=== PATIENT | female | born 1950 | race Caucasian/White ===

== ENCOUNTER 2017-05-08 19:25 | Emergency (ER) | payer MEDICARE, OTHER, SELFPAY ==
[2017-05-08 19:25] VITALS: BP 192/99; PULSE 102; RESP 16; TEMP 37.2; O2SAT 96; BMI 32.6
[2017-05-08 19:40] VITALS: BP 198/102; PULSE 104; RESP 18; O2SAT 97
--- NOTE | 2017-05-08 19:55 | EKG12_ITS ---
Test Reason : CHEST TIGHTNESS Blood Pressure : / mmHG Vent. Rate : 095 BPM Atrial Rate : 095 BPM P-R Int : 158 ms QRS Dur : 080 ms QT Int : 382 ms P-R-T Axes : 013 050 011 degrees QTc Int : 480 ms Normal sinus rhythm Normal ECG Confirmed by SYBIL CURRIE, ANTHONY ([id number]), brands editor FREDERICK QUINTERO ([id number]) on 05/10/2017 3:00:02 PM Referred By: MAYUR Confirmed By:ANTHONY DEVINE MD
--- NOTE | 2017-05-08 19:55 | RAD_ITS ---
STUDY: X-RAY CHEST REASON FOR EXAM: Female, 67 years old. High blood pressure TECHNIQUE: Single AP portable view of the chest. COMPARISON: None. FINDINGS: EKG lines overlying the chest. The lungs are clear and expanded. There is no demonstrated pleural abnormality. Normal size heart. Normal mediastinum and ruth. Normal visualized pulmonary arteries. Normal visualized aortic arch and descending thoracic aorta. Normal visualized thoracic spine. Normal visualized ribs, clavicles, and shoulders. There is no demonstrated abnormality of the visualized soft tissue structures of the upper abdomen. RAD/Chest 1 View (Portable) IMPRESSION: No acute cardiopulmonary disease. Electronically Signed: Sheldon Pierson DO at 20:31 EDT , Service support ,
--- NOTE | 2017-05-08 19:58 | NURSING ---
NO OLD EKG
[2017-05-08 20:19] LABS: Hematocrit 45.2 % (37-47); Mean Corp Hgb Conc 33.2 g/gl (32-36); Mean Corpuscular Hgb 30.2 pg (27.0-32.0); Mean Corpuscular Volume 90.9 fL (81-99); Platelet Count 326 K/mm3 (150-450); RBC Distribution Width CV 12.2 % (11.6-14.6); RBC Distribution Width SD 40.1 fl (35.1-43.9); Red Blood Count 4.97 M/mm3 (4.2-5.4); White Blood Count 7.2 K/mm3 (4.4-11.0)
[2017-05-08 20:20] LABS: Absolute Lymphocyte Count 2.25 X10^3/ul (0.83-4.51); Absolute Neutrophil Count 4.2 X10^3/uL (2.0-7.7); Basophil# 0.01 X10^3/uL; Basophil% 0.1 % (0-1); Eosinophils% 1.4 % (0-5); Lymphocyte # 2.25 X10^3/ul (4.0); Lymphocyte % 31.3 % (19-41); Monocyte# 0.59 X10^3/uL; Monocyte% 8.2 % (0-10); Neutrophil % 58.6 % (47-70)
[2017-05-08] MEDS: hydrALAZINE 20 MG/ML Vial 10 MG IV (20:26)
[2017-05-08 20:30] LABS: POSITIVE COUNT NO; POSITIVE DIFFERENTIAL NO; POSITIVE MORPHOLOGY NO
[2017-05-08] MEDS: Metoprolol Tartrate 5 MG/5 ML Vial IV (20:36)
[2017-05-08 20:40] VITALS: BP 174/97; PULSE 94; RESP 20; O2SAT 98
[2017-05-08 20:42] VITALS: BP 156/93; PULSE 85; RESP 20; O2SAT 95
[2017-05-08 20:51] LABS: Anion Gap 9 (5-15); BUN 12 mg/dL (7-18); BUN/Creat Ratio 16.3 RATIO (10-20); Calcium,Total 8.6 mg/dL (8.5-10.1); Chloride 106 mmol/L (98-107); Creatinine, Serum 0.74 mg/dL (0.55-1.02); EST Glomerular Filtration Rate 84 mL/min (>60); Est Glom Filt Rate - Afr Amer 101 mL/min (>60); Estimated Creatinine Clearance 55.82 ml/min; Glucose 125 mg/dL (74-106); Potassium 3.9 mmol/L (3.5-5.1); Sodium Level 141 mmol/L (136-145)
--- NOTE | 2017-05-08 21:02 | ED.VISSUMM ---
- ER Visit Summary Date of Service: 05/08/17 Chief Complaint: Hypertension History of Present Illness: The patient is a 67 F [place] with elevated blood pressure. Patient has been on iodine for 15 years. She states it makes her constipated but she has dealt with it. She recently changed doctors and was to get off of the clonidine. She was told to stop the clonidine and begin Norvasc. She states that within 30 minutes of taking the Norvasc she had pain in her back and belching headache and just felt poorly. Her blood pressures were up and down. She has facial flushing. This was 2 weeks ago. She states that over the past 2 weeks she has started the Norvasc stopped it went back on the clonidine stopped it. She most recently doubled her losartan to 100 mg twice a day try the Norvasc and needed to stop it. Today she took the losartan twice and some clonidine twice. Patient has an appointment with her doctor tomorrow but is at a point tonight where she feels that she is going to if she does not come in. Physical Examination: Blood pressure 197/99 temperature 98.9 heart rate of 102 respirations are 18 pulse ox 97% Gen: Well-nourished well-developed Head: Normocephalic atraumatic Eyes: Perrl EOMI ENT: TMs clear no rhinorrhea moist mucous membranes Neck: Supple no lymphadenopathy no JVD nontender CVS: Regular rate rhythm no murmurs normal S1-S2 Respiratory: No distress clear to auscultation bilaterally chest nontender Abdomen: Soft nontender nondistended normal bowel sounds no masses Back: Nontender Extremity: Nontender no edema Skin: Normal color no rash Neuro: alert orientated ?3 CN II-XII intact normal strength sensation reflexes gait cerebellar Psych: Patient is very anxious Test Results: CBC BMP and troponin were negative. EKG is a normal sinus rhythm. Chest x-ray is negative. Emergency Department Course and Treatment: Patient received a dose of hydralazine. Her blood pressure is coming down. In speaking with the patient I believe there is a significant component of psychosomatic issues. The patient is anxious. That alone is going to have her blood pressure go up. She needs to understand that most people coming off of long-term use of clonidine will have some rebound issues. At this point I would discharge the patient home have her follow-up with her doctor tomorrow as scheduled. I will leave adjusting blood pressure medicines to them as they are able to follow her up. Impression: 1. Hypertensive urgency This note was generated with [employer] dictation software. It may contain incorrect words, spelling, and punctuation that were not noted in review of the chart prior to signing ED Disposition - Plan for ED Patient: Disposition: Home or Assisted Living Chief Complaint: Hypertension Instructions: ED Hypertension Conf Out Of Control Referrals: Samuel Rodriguez MD [Primary Care Provider] - Keep [facility] appointment
[2017-05-08 21:14] VITALS: BP 166/103; PULSE 88; RESP 18; O2SAT 94
== END 2017-05-08 21:33 | disposition home or self-care (01) ==
PROVIDERS: Emergency Provider Emergency Medicine; Family Provider Internal Medicine; PCP Internal Medicine
DX: I16.0 Hypertensive urgency (principal); I10 Essential (primary) hypertension; E03.9 Hypothyroidism, unspecified; E87.6 Hypokalemia; E66.9 Obesity, unspecified; Z68.32 Body mass index [BMI] 32.0-32.9, adult; Z79.899 Other long term (current) drug therapy
CPT/HCPCS: 71045; 80048; 84484; 85025; 93005; 96374; 96375; 99285; A4216

== ENCOUNTER 2017-06-01 07:47 | Day surgery (SDC) | payer MEDICARE, OTHER, SELFPAY ==
[2017-06-01 08:04] VITALS: BP 143/83; PULSE 65; RESP 16; TEMP 36.3; O2SAT 98; BMI 32.8
[2017-06-01 08:21] LABS: Bedside Glucose 143 mg/dL (70-110)
--- NOTE | 2017-06-01 09:22 | H&P.OPEN ---
Past Medical/Surgical History - Planned Operation Planned Operative Procedure/s: colonoscopy Date of Operative Procedure: 06/01/17 Permit Signed: No S.O.S: No Is This Patient Having a Total Joint: No - Previous Hospitalizations/Surgeries HX Hospitalizations: Yes HX of Surgeries: hyster, tonsils and adenoids, back surgery , toe surgery (rt), Any Problems With Anesthesia: Yes - shaking You/Your Family Experience Fever (Hyperthermia) With Anes: No Cholinesterase deficiency: No - Cardiovascular Hx Chest Pain within Last 2 months: Yes - bp was elevated Hx of Irregular Heartbeat and/or Afib: No Hx Heart Attack: No Hx Congestive Heart Failure: No Hx Rheumatic Fever: No Hx Hypertension: Yes Hx Internal Defibrillator: No Hx Pacemaker: No Hx Cardiac Catheterization: No Hx Cardiac Surgery/Stents/Etc.: No Hx Stress Test: Yes - wch-20 yrs ago HX Edema: No Hx Pain in Legs when Walking/Leg Cramps: Yes - Respiratory Chronic Cough: No HX of Shortness of Breath: No Hoarseness: No Hx Chronic Obstructive Pulmonary Disease (COPD): No Hx Asthma: No Hx Emphysema: No Hx Sleep Apnea: No Hx Oxygen Use at Home: No Hx Respiratory Tract Infection/Cold (presently): No Do You Snore Loudly (louder than talking or can be heard): Yes Do You Often Feel Tired/ Fatigued/ Sleepy Dring Daytime?: Yes Has Anyone Observed You Stop Breathing During Sleep?: No Result (for STOP score): Positive Hx Smoking: No Smoking Status: Never smoker - Gastrointestinal Hx Gastroesophageal Reflux: No Hx Gastrointestinal Disorders: No Hx Gastrointestinal Bleed: No Hx Ulcer: No Hx Hiatal Hernia: No Difficulty Chewing/Swallowing: No Recent Onset of Swallowing Problems: Yes Special diet followed at home: No Hx Unplanned Weight Loss of 20#: No HX Unplanned Weight Gain of 20#: No - Neurological Hx Seizures: Yes HX Syncope/Blackout Spells/Unconsciousness: No Hx CVA/Stroke: No Hx Transient Ischemic Attacks (TIA): No Hx Multiple Sclerosis: No Hx Parkinson's Disease: No Hx Head/Neck Injury: Yes - fall Hx Headaches: No Hx Back Injury/Pain: Yes - surgery Recent Onset of Speech Difficulty: No Restless Legs: No Does patient have nerve stimulator: No Patient instructed to have device shut off: No Rep notified?: No - Blood Disorder Hx Leukemia: No Bleeding Tendencies: No Hx Deep Vein Thrombosis: No Hx High Cholesterol: Yes Blood Transmitted Disease: No Hx Hepatitis: No Hx Cirrhosis: No Hx Anemia: No Hx Blood Disorders: No - Reproduction : No Is Patient Lactating: No Hx Hysterectomy: No Hx Tubal Ligation: No Are You Post Menopause: Yes - Genitourinary Hx Renal Disease: No - Musculoskeletal Hx Arthritis: Yes Hx Rheumatoid Arthritis: No Hx Gout: No Recent Onset of an Orthopedic Problem: No - Endocrine Hx Diabetes: Yes - 11-15 yrs - re DM for years Insulin: No Thyroid Disease: Yes - on meds Hx Steroid Therapy: No - Psycho/Social Hx Substance Use: No Hx Alcohol Use: No Hx Anxiety: No Hx Depression: No Mental Illness: No Hx Dementia: No - Miscellaneous Hx Cancer: No Recent Exposure to Contagious Disease: No Active MRSA: No Hx of C-Diff: No Any Loose Teeth: No Allergies latex Allergy (Severe, Verified 05/09/17 15:09) rash Sulfa (Sulfonamide Antibiotics) Allergy (Unknown, Verified 05/09/17 15:09) other unknown amlodipine Adverse Reaction (Verified 05/28/17 11:57) raises her bp nifedipine [From Adalat] Adverse Reaction (Verified 05/28/17 11:55) raises her bp allergy shot Adverse Reaction (Severe, Uncoded 05/28/17 12:14) seizure cholesterol medications Adverse Reaction (Severe, Uncoded 05/09/17 15:09) body aches Home Medications Medication Instructions Recorded losartan 50 mg tablet 50 mg PO BID 04/26/17 metformin ER 500 mg 500 mg PO QHS 04/26/17 tablet,extended release 24 hr potassium chloride ER 10 mEq 10 meq PO BID 04/26/17 capsule,extended release Levothyroxine [Synthroid] 75 mcg PO QHS 05/08/17 metoprolol tartrate 50 mg tablet 50 mg PO BID 05/14/17 Magnesium 500 mg PO DAILY 05/28/17 Natures Bounty Probiotic 1 tab PO BID 05/28/17 Psyllium Husk [Metamucil] 0.4 gm PO TID 05/28/17 Tumeric 500 mg PO DAILY 05/28/17 aspirin 81 mg tablet,delayed 81 mg PO QDAY 05/30/17 release fenofibrate micronized 43 mg 43 mg PO QPM #30 cap 05/30/17 capsule - Discharge Is Pt Admitted From a Prison, or a Senior Care: No Who Depends On You At Home: lives with After D/C, Where Do you Plan to Go: Return Home - From the PAT History Number of Risk Factors: 4 - Physical Exam General: Alert, Oriented x3, Cooperative HEENT: Atraumatic, PERRLA Lungs: Normal air movement Cardiovascular: Regular rate, Regular Rhythm Abdomen: Soft, Non Tender, Non-Distended Vital Signs Temp Pulse Resp BP Pulse Ox 97.3 F L 65 16 143/83 H 98 06/01/17 08:04 06/01/17 08:04 06/01/17 08:04 06/01/17 08:04 06/01/17 08:04 Oxygen Delivery Method Room Air Weight: 216 lb 4.375 oz Body Mass Index (BMI) 32.8 POC Glucose 06/01/17 08:08 POC Glucose 143 H Assessment/Plan 67-year-old female for screening colonoscopy 1. Patient reports she is not having any issues at this time. She reports no abdominal pain or blood in her stool. She has no inadvertent weight loss. She has never had a colonoscopy in the past. He has no family history of colon cancer. 2. I explained endoscopy in detail to the patient. I explained the risks including but not limited to stroke or heart attack with anesthesia, perforation of the GI tract, bleeding, infection. I explained that any of these could necessitate further emergency surgery. The patient understands and all questions were answered sufficiently. The patient wishes to proceed with procedure. Elmer Penn MD Pager: [facility] [address], [address] [address] Office: Surgery Risks - Colonoscopy Risks Include but are not Limited To: Risks include but are not limited to: Bleeding, perforation requiring further surgery, inability to complete colonoscopy requiring barium enema.
[2017-06-01 09:46] VITALS: BP 105/56; BP 143/83; PULSE 65; RESP 16; TEMP 36.6; O2SAT 98
--- NOTE | 2017-06-01 09:46 | PCM.OPRPT ---
Problem List (1) Screen for colon cancer Status: Acute Report of Operation Date of Procedure: 06/01/17 Pre-Operative Diagnosis: Screening colonoscopy Post-Operative Diagnosis: Normal colonoscopy Surgery/Procedure Performed:: Colonoscopy Description of Procedure: The major risks and benefits associated with the procedure were explained to the patient in detail. The patient verbalized understanding and agreement with the same. The patient was brought to the endoscopy suite. After adequate sedation was achieved, the patient was placed in the left lateral decubitus position and a digital rectal exam was performed. This examination was within normal limits. A well-lubricated colonoscope was then inserted into the rectum and advanced under direct visualization to the level of the cecum. The bowel prep was good. The cecum was identified by both visual and anatomic landmarks. A photograph was taken of the end of the cecum. The scope was then fully withdrawn while examining the color, texture, anatomy and integrity of the mucosa from the cecum to the anal canal. The findings were consistent with normal colonic mucosa. Over 6 minutes were taken to examine the colonic mucosa. Upon reaching the rectum the scope was retroflexed to examine the distal rectal vault. The scope was then straightened and was completely retrieved upon exiting the anal canal and the procedure was terminated. The patient was then transferred to the recovery room in stable condition. Recommendations for follow up: 10 years
[2017-06-01 09:50] VITALS: BP 125/77; BP 143/83; PULSE 65; RESP 18; O2SAT 97
[2017-06-01 09:55] VITALS: BP 134/72; BP 143/83; PULSE 60; RESP 16; O2SAT 97
[2017-06-01 10:00] VITALS: BP 130/75; BP 143/83; PULSE 61; RESP 16; TEMP 36.1; O2SAT 97
[2017-06-01 10:18] VITALS: BP 143/83
== END 2017-06-01 10:31 | disposition home or self-care (01) ==
LOC: EN 07:48 → AC 07:49
PROVIDERS: Family Provider Internal Medicine; PCP Internal Medicine; Visit Provider Surgery
PROC: 0DJD8ZZ Inspection of Lower Intestinal Tract, Via Natural or Artificial Opening Endoscopic (ICD-10-PCS; CPT 45378; principal; 2017-06-01 08:55)
DX: Z12.11 Encounter for screening for malignant neoplasm of colon (principal); K59.09 Other constipation; I10 Essential (primary) hypertension; E78.00 Pure hypercholesterolemia, unspecified; E11.9 Type 2 diabetes mellitus without complications; E06.9 Thyroiditis, unspecified; G40.909 Epilepsy, unspecified, not intractable, without status epilepticus; Z79.899 Other long term (current) drug therapy; Z79.82 Long term (current) use of aspirin; Z79.84 Long term (current) use of oral hypoglycemic drugs
CPT/HCPCS: G0121; 82962; J7120

== ENCOUNTER 2017-06-06 09:00 | Outpatient (RCR) | payer MEDICARE, OTHER, SELFPAY | END 2017-06-11 23:59 | LOC: DC 09:00 | PROVIDERS: Family Provider Internal Medicine; PCP Internal Medicine; Visit Provider Internal Medicine | DX: E11.9 Type 2 diabetes mellitus without complications (principal); E88.81 Metabolic syndrome and other insulin resistance; Z71.3 Dietary counseling and surveillance | CPT/HCPCS: 97802; G0108 ==

== ENCOUNTER → 2017-09-03 08:32 | Outpatient (CLI) | payer MEDICARE, OTHER, SELFPAY ==
[2017-09-03 09:14] LABS: Hemoglobin A1c 7.6 % (4.2-6.3)
[2017-09-03 09:34] LABS: Cholesterol 277 mg/dL (200); High Density Lipoprotein 40 mg/dL; Triglycerides 305 mg/dL; Very Low Density Lipoprotein 61 mg/dL (5-40)
== END ==
PROVIDERS: Family Provider Internal Medicine; PCP Internal Medicine; Visit Provider Nurse Practitioner Family
DX: E11.9 Type 2 diabetes mellitus without complications (principal); E78.5 Hyperlipidemia, unspecified
CPT/HCPCS: 36415; 80061; 83036

== ENCOUNTER → 2018-01-14 08:13 | Outpatient (CLI) | payer MEDICARE, OTHER, SELFPAY ==
[2018-01-01 09:14] VITALS: BMI 34.2
[2018-01-14 09:45] LABS: BUN 14 mg/dL (7-18); Creatinine, Serum 0.76 mg/dL (0.55-1.02); Glucose 128 mg/dL (74-106)
[2018-01-14 09:46] LABS: Anion Gap 9 (5-15); BUN/Creat Ratio 18.5 RATIO (10-20); Calcium,Total 8.7 mg/dL (8.5-10.1); Chloride 106 mmol/L (98-107); EST Glomerular Filtration Rate 81 mL/min (>60); Est Glom Filt Rate - Afr Amer 98 mL/min (>60); Sodium Level 139 mmol/L (136-145)
--- OUTSIDE RECORDS SUMMARY | 2018-03-09 08:10 | XMS RPT_ITS ---
:1950 Author Organization OHIP Support Name Relationship Address Phone TOD CRUZ Unavailable [address] + [place] [address] CORONADO, BUNNY Unavailable [address] + [place] [address] R Unavailable Unavailable Unavailable LUTSCH, TOD Unavailable [address] + [place] [address] CORONADO, BUNNY Unavailable [address] + [place] [address] R Unavailable Unavailable Unavailable LUTSCH, TOD Unavailable [address] + [place] [address] CORONADO, BUNNY Unavailable [address] + [place] [address] R Unavailable Unavailable Unavailable LUTSCH, TOD Unavailable [address] + [place] [address] CORONADO, BUNNY Unavailable [address] + [place] [address] R Unavailable Unavailable Unavailable LUTSCH, TOD Unavailable [address] + [place] [address] CORONADO, BUNNY Unavailable [address] + [place] [address] R Unavailable Unavailable Unavailable LUTSCH, TOD Unavailable [address] + [place] [address] CORONADO, BUNNY Unavailable [address] + [place] [address] R Unavailable Unavailable Unavailable LUTSCH, TOD Unavailable [address] + [place] [address] CORONADO, BUNNY Unavailable [address] + [place] [address] R Unavailable Unavailable Unavailable LUTSCH, TOD Unavailable [address] + [place] [address] CORONADO, BUNNY Unavailable [address] + [place] [address] R Unavailable Unavailable Unavailable LUTSCH, TOD Unavailable [address] + [place] [address] CORONADO, BUNNY Unavailable [address] + [place] [address] R Unavailable Unavailable Unavailable LUTSCH, TDO Unavailable [address] + [place] [address] CORONADO, BUNNY Unavailable [address] + [place] [address] R Unavailable Unavailable Unavailable LUTSCH, TOD Unavailable [address] + [place] [address] CORONADO, BUNNY Unavailable [address] + [place] [address] R Unavailable Unavailable Unavailable LUTSCH, TOD Unavailable [address] + [place] [address] CORONADO, BUNNY Unavailable [address] + [place] [address] R Unavailable Unavailable Unavailable LUTSCH, TOD Unavailable [address] + [place] [address] CORONADO, BUNNY Unavailable [address] + [place] [address] R Unavailable Unavailable Unavailable LUTSCH, TOD Unavailable [address] + [place] [address] CORONADO, BUNNY Unavailable [address] + [place] [address] R Unavailable Unavailable Unavailable FABIOLA, EVERETT Unavailable [address] + [place] [address] LUTSCH, TOD Unavailable [address] + [place] [address] R Unavailable Unavailable Unavailable FABIOLA, EVERETT Unavailable [address] + [place] [address] LUTSCH, TOD Unavailable [address] + [place] [address] R Unavailable Unavailable Unavailable Care Team Providers Name Role Phone Oleghe, Efewongbe Attending Unavailable Oleghe, Efewongbe Referring Unavailable Oleghe, Efewongbe Attending Unavailable Oleghe, Efewongbe Referring Unavailable Nurse, Surgery Attending Unavailable Marvin Mcmanus Attending Unavailable Oleghe, Efewongbe Primary Care Unavailable Oleghe, Efewongbe Attending Unavailable Oleghe, Efewongbe Referring Unavailable Deja Gilmore Attending Unavailable Oleghe, Efewongbe Attending Unavailable Oleghe, Efewongbe Referring Unavailable Oleghe, Efewongbe Primary Care Unavailable Ronnie Valdez [employer] Attending Unavailable Oleghe, Efewongbe Referring Unavailable Elmer Penn Attending Unavailable Elmer Penn Referring Unavailable Oleghe, Efewongbe Primary Care Unavailable Ronnie Valdez [employer] Attending Unavailable Oleghe, Efewongbe Referring Unavailable Oleghe, Efewongbe Primary Care Unavailable Elmer Penn Attending Unavailable Elmer Penn Referring Unavailable Oleghe, Efewongbe Primary Care Unavailable Elmer Penn Consulting Unavailable Oleghe, Efewongbe Attending Unavailable Oleghe, Efewongbe Referring Unavailable Oleghe, Efewongbe Primary Care Unavailable Ronnie Valdez [employer] Attending Unavailable Ronnie Valdez [employer] Referring Unavailable Oleghe, Efewongbe Primary Care Unavailable Oleghe, Efewongbe Attending Unavailable Oleghe, Efewongbe Referring Unavailable Oleghe, Efewongbe Primary Care Unavailable Oleghe, Efewongbe Attending Unavailable Oleghe, Efewongbe Referring Unavailable Oleghe, Efewongbe Attending Unavailable Oleghe, Efewongbe Referring Unavailable Oleghe, Efewongbe Primary Care Unavailable PROBLEMS PROBLEMS DATE TYPE CONDITION / CODE ATTENDING STATUS SOURCE 01/22/2018 Unknown I10 - Essential Oleghe, Active [place] (primary) [facility] hypertension / Hospital I10(ICD-10) Repository 01/22/2018 Unknown E87.6 - Hypokalemia Oleghe, Active [place] / E87.6(ICD-10) [facility] Hospital Repository 01/22/2018 Unknown E03.9 - Oleghe, Active [place] Hypothyroidism, [facility] unspecified / Hospital E03.9(ICD-10) Repository 01/14/2018 Unknown E11.9 - Type 2 Oleghe, Active [place] diabetes mellitus [facility] without Hospital complications / Repository E11.9(ICD-10) 09/07/2017 Unknown Z12.31 - Encounter Oleeleazar, Active [place] for screening [facility] mammogram for Hospital malignant neoplasm Repository of breast / Z12.31(ICD-10) 05/30/2017 Unknown K59.09 - Other Valdez, Ronnie Active [place] constipation / [employer] Community K59.09(ICD-10) Hospital Repository 05/30/2017 Unknown E78.5 - Valdez, Ronnie Active [place] Hyperlipidemia, [facility] unspecified / Hospital E78.5(ICD-10) Repository 04/26/2017 Unknown E88.81 - Metabolic Oleghe, Active [place] syndrome / ewongbe [facility] E88.81(ICD-10) Hospital Repository 04/26/2017 Unknown E66.9 - Obesity, Oleghe, Active [place] unspecified / ewongbe Community E66.9(ICD-10) Hospital Repository PROCEDURES PROCEDURES No Procedure Records FoundRESULTS RESULTS INTERNAL MEDICINE Observed: 01/22/2018 Status: F Source: [place] OFFICE VISIT 4:46 PM [facility] REPOSITORY [facility] [address] [place] [address] [place] [address] OFFICE VISIT Date of Service: 01/22/18 MR#: [id number] Acct: [id number] Name: HANANE CRUZ Rep #: [id number] : 1950 Provider: Samuel Rodriguez MD Age/Sex: 67/F Location: [facility] Status: Signed Intake Vital Signs01/22/18 Body Mass Index (BMI) 34.2 01/22/18 Height 5 ft 8 in 01/22/18 Weight: 228 lb 01/22/18 Body Mass Index (BMI) 34.7 01/22/18 Blood Pressure 159/86 H Intake Visit Reasons: 2 wk fu Chief Complaint: FU hypertension Is patient in pain?: No Allergies latex Allergy (Severe, Verified 01/22/18 10:30) rash titanium Allergy (Intermediate, Verified 01/22/18 10:30) sores Sulfa (Sulfonamide Antibiotics) Allergy (Unknown, Verified 01/22/18 10:30) other amlodipine Adverse Reaction (Verified 01/22/18 10:30) raises her bp nifedipine [From Adalat] Adverse Reaction (Verified 01/22/18 10:30) raises her bp allergy shot Adverse Reaction (Severe, Uncoded 01/22/18 10:30) seizure cholesterol medications Adverse Reaction (Severe, Uncoded 01/22/18 10:30) body aches Medications Magnesium 500 mg PO DAILY 05/28/17 [History Confirmed 01/22/18] Natures Bounty Probiotic 1 tab PO BID 05/28/17 [History Confirmed 01/22/18] Psyllium Husk [Metamucil] 0.4 gm PO TID 05/28/17 [History Confirmed 01/22/18] aspirin 81 mg tablet,delayed release 81 mg PO QDAY 05/30/17 [History Confirmed 01/22/18] losartan 100 mg tablet 100 mg PO QDAY #90 tab 09/07/17 [Rx Confirmed 01/22/18] levothyroxine 75 mcg tablet 75 mcg PO QHS #90 tab 09/19/17 [Rx Confirmed 01/22/18] metoprolol tartrate 50 mg tablet 50 mg PO BID #180 tab 09/19/17 [Rx Confirmed 01/22/18] fenofibrate 54 mg tablet 54 mg PO DAILY #90 tab 10/11/17 [Rx Confirmed 01/22/18] metformin ER 500 mg tablet,extended release 24 hr 1,000 mg PO QPM #180 tab 01/01/18 [Rx Confirmed 01/22/18] hydrochlorothiazide 25 mg tablet 25 mg PO DAILY #90 tab 01/22/18 [Rx Confirmed 01/22/18] icosapent ethyl 1 gram capsule 2 g PO BID #180 cap 01/22/18 [Rx Confirmed 01/22/18] potassium chloride ER 10 mEq capsule,extended release 20 meq PO BID #180 cap 01/22/18 [Rx Confirmed 01/22/18] [facility] Medical History Type 2 diabetes mellitus (Chronic) IBS (irritable bowel syndrome) (Chronic) Seasonal allergies (Chronic) Hyperlipemia (Chronic) Hypertension (Chronic) Potassium (K) deficiency (Chronic) Hypothyroidism (Chronic) Chronic constipation (Resolved) Surgical History History of back surgery (Acute) History of hysterectomy (Acute) History of tonsillectomy (Acute) Hx of toe surgery (Acute) Family History Father Alcoholism Myocardial infarction Mother Hypertension Asthma Breast cancer Brother Hypertension Seizures Social History Smoking Status: Never smoker alcohol intake: never substance use type: does not use what type of physical activity do you participate in: bicycling frequency: 5-6 times per week HPI HPI Chief Complaint: FU hypertension Details: HANANE CRUZ, is a 67yo F who presents to the office today for follow up of her chronic controlled blood pressure. During the last visit, she was started on hydrochlorothiazide however, blood pressure is even more elevated at this time. She does not routinely check it at home. Repeat blood pressure after rest still elevated at 150/90mmHg. She admits to still poor dietary choices and accidentally lifestyle. She is open to making changes. ROS Const Constitutional: No chills, fatigue, fever(s), frequent falls, malaise, weakness, sleep problems or change in appetite Eyes Eyes: No blurry vision, change in vision, double vision, discharge or visual disturbances ENT ENT: No abnormal hearing, ear pain, ear pressure, tinnitus or dizziness/vertigo Resp Respiratory: No cough, shortness of breath or wheezing Cardio Cardiology: No chest pain at rest, chest pain with exertion, shortness of breath, dyspnea on exertion, generalized swelling, irregular heart rhythm, lightheadedness, orthopnea, fast heart rate or palpitations Gastro GI: No abdominal pain, change in bowel habits, constipation, diarrhea, nausea/dyspepsia or vomiting Genitourinary-Female: No difficulty urinating, burning urination, painful urination, urinary incontinence, urinary frequency, urinary urgency, urinary hesitancy, urinary retention, Frequent nighttime urination/ nocturia, sexual problems, genital lesions, abnormal vaginal bleeding, pelvic pain, vaginal dryness, vaginal odor or Vaginal Itching Musc Musculoskeletal: No joint pain, back pain, joint swelling, limited range of motion, numbness or tingling Skin Skin: No change in skin color, itching, rash or wounds Breast Breast: No breast lump or breast pain Neuro Neurology: No frequent falls, weakness, visual disturbances, abnormal hearing, numbness, tingling, unsteady gait/balance, dizziness, loss of vision or memory loss Psych Psychiatric: No change in appetite, No memory loss, No anxiety, No depression, No Thoughts of harming yourself/Others Endo Endocrine: No fatigue, heat intolerance, increased thirst/drinking, increased hunger or increased urination Aller/Imm Allergy/Immunologic: No wheezing, itchy eyes or seasonal allergy symptoms Darwin/Lymp Hematologic/Lymphatic: No easy bleeding, easy bruising or enlarged lymph nodes Exam Const General: cooperative, no acute distress Orientation: alert, awake, oriented x3 HENVA Head: atraumatic, normocephalic Ears: hearing grossly normal bilaterally Resp Effort AND Inspection: normal respiratory effort, able to speak in complete sentences Auscultation: Bilateral: Clear to Auscultation Cardio Rate: regular rate Rhythm: regular rhythm Heart Sounds: S1 normal, S2 normal GI Palpation: soft, no hepatosplenomegaly Neuro General: alert, awake, oriented x3, moves all extremities, CN's II-XI intact bilaterally Extrem General: no pedal edema Psych Appearance: grossly normal Mood: congruent mood Affect: normal affect Assessment AND Plan 1. Hypertension I10 Plan Still not optimally controlled. Increase hydrochlorothiazide to 25 mg daily. BMP in 2 weeks. Lifestyle and dietary modifications encouraged. Orders Orders: 2. Type 2 diabetes mellitus E11.9 Plan A1c came down from 7.6 to 7. Currently on 1000 mg of metformin twice daily. Dietary choices and lifestyle modifications will significantly help control her diabetes better. Patient now open to exercising and making healthier choices with her diet. Repeat A1c in 3 months. 3. Hyperlipemia E78.5 Plan Poorly tolerant of statins. Refuses to take. Currently on fenofibrate which has helped with her triglycerides. Will also add Vascepa. Lifestyle and dietary modifications as above. Will follow. 4. Hypothyroidism E03.9 Plan Thyroid function studies ordered. Continue current medication. This note was generated with StrongSteam dictation software. It may contain incorrect words, spelling, and punctuation that were not noted in checking the note before signing. Orders Orders: Plan Detail Other Orders Orders: Other Medications New: icosapent ethyl (Vascepa) administer with food2 grams (2 x 1 gram) PO BID 180 caps 3RF ; swallow whole; do not crush/chew/dissolve/break /cut Changed: Discontinued: icosapent ethyl (Vascepa) administer with food2 grams (2 x 1 gram) PO BID 180 caps 3RF ; swallow whole; do not crush/chew/dissolve/break /cut Discontinued Reason: Order Changed Coding Level of Care Code Off vis,est,level 4 Diagnoses Hypertension I10 Type 2 diabetes mellitus E11.9 Hyperlipemia E78.5 Hypothyroidism E03.9 01/22/18 1642 <Electronically signed by Samuel Rodriguez MD> Date Samuel Rodriguez MD Cosigner Signature: Date (if applicable) CC: BASIC METABOLIC Collected: 01/14/2018 Status: F Source: [place] PROFILE ([facility]) 8:20 AM [facility] REPOSITORY TYPE CODE TESTS RESULT OUT OF RANGE REFERENCE UNITS LAB L501.0100 74-106 mg/dL High GLU 128 Result Comment: Fasting Glucose result greater than or equal to 126 mg/dL suggests DIABETES MELLITUS per A.D.A. criteria. Please note revised GLUCOSE reference range effective 2017. LAB L501.1000 7-18 mg/dL Normal BUN 14 LAB L501.1100 0.55-1.02 mg/dL Normal CREAT,SERUM 0.76 Result Comment: The validity of the calculated GFR AND GFRAA in patients over 70 years has not been determined. Clinical correlation is essential. LAB L501.1110 >60 mL/min Normal EST GFR 81 Result Comment: Non- GFR Calc LAB L501.1115 >60 mL/min Normal EST GFR - AA 98 Result Comment: GFR Calc LAB L501.1300 10-20 RATIO Normal BUN/CRE 18.5 LAB L501.2200 8.5-10.1 mg/dL CA Normal 8.7 LAB L501.5300 136-145 mmol/L NA Normal 139 LAB L501.5600 3.5-5.1 mmol/L K Normal 4.0 LAB L501.5900 98-107 mmol/L CL Normal 106 LAB L501.6100 21.0-32.0 mmol/L Normal CO2 24.0 LAB L501.6200 5-15 Normal GAP 9 Performed By: #### L500.2500 #### [facility] [address] [place], [address] HEMOGLOBIN A1C Collected: 01/14/2018 Status: F Source: [place] 8:20 AM [facility] REPOSITORY TYPE CODE TESTS RESULT OUT OF RANGE REFERENCE UNITS LAB L501.9985 4.2-6.3 % High HGB A1C 7.0 Performed By: #### L501.9985 #### [facility] [address] [place], [address] INTERNAL MEDICINE Observed: 01/01/2018 Status: F Source: [place] OFFICE VISIT 5:12 PM [facility] REPOSITORY [facility] [address] [place] [address] [place] [address] OFFICE VISIT Date of Service: 01/01/18 MR#: [id number] Acct: [id number] Name: HANANE CRUZ Rep #: [id number] : 1950 Provider: Samuel Rodriguez MD Age/Sex: 67/F Location: [facility] Status: Signed Intake Vital Signs01/01/18 Height 5 ft 8 in 01/01/18 Weight: 225 lb 01/01/18 Body Mass Index (BMI) 34.2 01/01/18 Blood Pressure 147/86 H 01/01/18 Blood Pressure Location Rt brachial Intake Visit Reasons: 3 MOS F/U Chief Complaint: 3 Mo FU BP AND Diabetes Allergies latex Allergy (Severe, Verified 01/01/18 09:17) rash titanium Allergy (Intermediate, Verified 01/01/18 09:17) sores Sulfa (Sulfonamide Antibiotics) Allergy (Unknown, Verified 01/01/18 09:17) other amlodipine Adverse Reaction (Verified 01/01/18 09:17) raises her bp nifedipine [From Adalat] Adverse Reaction (Verified 01/01/18 09:17) raises her bp allergy shot Adverse Reaction (Severe, Uncoded 01/01/18 09:17) seizure cholesterol medications Adverse Reaction (Severe, Uncoded 01/01/18 09:17) body aches Medications Magnesium 500 mg PO DAILY 05/28/17 [History Confirmed 01/01/18] Natures Bounty Probiotic 1 tab PO BID 05/28/17 [History Confirmed 01/01/18] Psyllium Husk [Metamucil] 0.4 gm PO TID 05/28/17 [History Confirmed 01/01/18] Tumeric 500 mg PO DAILY 05/28/17 [History Confirmed 01/01/18] aspirin 81 mg tablet,delayed release 81 mg PO QDAY 05/30/17 [History Confirmed 01/01/18] losartan 100 mg tablet 100 mg PO QDAY #90 tab 09/07/17 [Rx Confirmed 01/01/18] levothyroxine 75 mcg tablet 75 mcg PO QHS #90 tab 09/19/17 [Rx Confirmed 01/01/18] metoprolol tartrate 50 mg tablet 50 mg PO BID #180 tab 09/19/17 [Rx Confirmed 01/01/18] potassium chloride ER 10 mEq capsule,extended release 10 meq PO BID #180 cap 09/19/17 [Rx Confirmed 01/01/18] fenofibrate 54 mg tablet 54 mg PO DAILY #90 tab 10/11/17 [Rx Confirmed 01/01/18] hydrochlorothiazide 12.5 mg tablet 12.5 mg PO DAILY #30 tab 01/01/18 [Rx Confirmed 01/01/18] metformin ER 500 mg tablet,extended release 24 hr 1,000 mg PO QPM #180 tab 01/01/18 [Rx Confirmed 01/01/18] [facility] Medical History Type 2 diabetes mellitus (Chronic) IBS (irritable bowel syndrome) (Chronic) Seasonal allergies (Chronic) Hyperlipemia (Chronic) Hypertension (Chronic) Potassium (K) deficiency (Chronic) Hypothyroidism (Chronic) Chronic constipation (Resolved) Surgical History History of back surgery (Acute) History of hysterectomy (Acute) History of tonsillectomy (Acute) Hx of toe surgery (Acute) Family History Father Alcoholism Myocardial infarction Mother Hypertension Asthma Breast cancer Brother Hypertension Seizures Social History Smoking Status: Never smoker alcohol intake: never substance use type: does not use what type of physical activity do you participate in: bicycling frequency: 5-6 times per week HPI HPI Chief Complaint: 3 Mo FU BP AND Diabetes Details: HANANE CRUZ, is a 67yo F who presents to the office today for follow of her chronic medical conditions. She has noted headache which he says have been ongoing for the last 2 weeks. Described as a dull intermittent headache. Prior history in the past typically associated with congestion. Had been prescribed allergy medications however has not used this lately. Her last A1c was slightly increased compared to prior. She reports compliance with her medication however has had some difficulty managing her diet. Now due for an A1c. Blood pressure in office is 147/86 which is where he typically ranges at home also. Currently on losartan and metoprolol. She had been on hydrochlorothiazide in the past which patient stated helped significantly bring down her blood pressure. ROS Const Constitutional: Positive for headache(s) (3-4 a week); no chills, fatigue, fever(s), frequent falls, malaise, weakness, sleep problems or change in appetite Eyes Eyes: No blurry vision, change in vision, double vision, discharge or visual disturbances ENT ENT: Positive for headache(s) (3-4 a week); no abnormal hearing, ear pain, ear pressure, tinnitus or dizziness/vertigo Resp Respiratory: No cough, shortness of breath or wheezing Cardio Cardiology: No chest pain at rest, chest pain with exertion, shortness of breath, dyspnea on exertion, generalized swelling, irregular heart rhythm, lightheadedness, orthopnea, fast heart rate or palpitations Gastro GI: No abdominal pain, change in bowel habits, constipation, diarrhea, nausea/dyspepsia or vomiting Genitourinary-Female: No difficulty urinating, burning urination, painful urination, urinary incontinence, urinary frequency, urinary urgency, urinary hesitancy, urinary retention, Frequent nighttime urination/ nocturia, sexual problems, genital lesions, abnormal vaginal bleeding, pelvic pain, vaginal dryness, vaginal odor or Vaginal Itching Musc Musculoskeletal: No joint pain, back pain, joint swelling, limited range of motion, numbness or tingling Skin Skin: No change in skin color, itching, rash or wounds Breast Breast: No breast lump or breast pain Neuro Neurology: Positive for headache(s) (3-4 a week); no frequent falls, weakness, visual disturbances, abnormal hearing, numbness, tingling, unsteady gait/balance, dizziness, loss of vision or memory loss Psych Psychiatric: No change in appetite, No memory loss, No anxiety, No depression, No Thoughts of harming yourself/Others Endo Endocrine: No fatigue, heat intolerance, increased thirst/drinking, increased hunger or increased urination Aller/Imm Allergy/Immunologic: No wheezing, itchy eyes or seasonal allergy symptoms Darwin/Lymp Hematologic/Lymphatic: No easy bleeding, easy bruising or enlarged lymph nodes Exam Const General: cooperative, no acute distress Orientation: alert, awake, oriented x3 HENMT Head: atraumatic, normocephalic Ears: hearing grossly normal bilaterally Resp Effort AND Inspection: normal respiratory effort, able to speak in complete sentences Auscultation: Bilateral: Clear to Auscultation Cardio Rate: tachycardic Rhythm: regular rhythm Heart Sounds: S1 normal, S2 normal GI Palpation: soft, no hepatosplenomegaly Neuro General: alert, awake, oriented x3, moves all extremities, CN's II-XI intact bilaterally Extrem General: no pedal edema Psych Appearance: grossly normal Mood: congruent mood Affect: normal affect Immunizations Fluad 2017- 65yr up(PF)45 mcg(15 mcgx3)/0.5 mL intramuscular syringe Performing Provider: Samuel Rodriguez MD Administered by: Elva Perera on 01/01/18 10:48 Dose Route Admin Location Lot Number Expiration Date [place] Protective Signal Installer 45 mcg IM Right Deltoid [id number] 08/11/18 26924-815-35 [employer]Q[facility] VIS Given Date VIS Publication Date 01/01/18 09/18/14 Eligibility Eligibility Date Assessment AND Plan 1. Headache R51 Plan Ongoing for about 2 weeks. Associated history of congestion. ??? Sinus headache. Tylenol as needed. Flonase. Advised to call with worsening symptoms or concerns. 2. Type 2 diabetes mellitus E11.9 Plan Last A1c around 7. Metformin was increased. Patient however states that she has not been very compliant with her diet. A1c ordered. Compliance encouraged. Follow-up with results. Orders Orders: 3. Hypertension I10 Plan Not optimally controlled however much better than it was previously. Will start on hydrochlorothiazide 12.5 mg daily. She states that she had done well on this in the past. However due to her history of hypokalemia we will monitor her potassium closely. If she has significant hypokalemia on hydrochlorothiazide, will either adjust current potassium dose or switch over to spironolactone. BMP in 2 weeks. Orders Orders: 4. Flu vaccine need Z23 Plan Flu shot given. This note was generated with StrongSteam dictation software. It may contain incorrect words, spelling, and punctuation that were not noted in checking the note before signing. Orders Orders: Medications Discontinued: Fluad 65yr up(PF)45 mcg(15 mcgx3)/0.5 mL [id number] mcg (0.5 mL) IM ONCE #1 0RF NS scular syringe (flu vac 2017 [id number](PF)) Disco ntinued Reason: Office Medication has been Documented a s given Plan Detail Other Medications New: Discontinued: Coding Level of Care Code Off vis,est,level 4 Diagnoses Headache R51 Type 2 diabetes mellitus E11.9 Hypertension I10 Flu vaccine need Z23 01/01/18 1712 <Electronically signed by Samuel Rodriguez MD> Date Samuel Rodriguez MD Cosigner Signature: Date (if applicable) CC: INTERNAL MEDICINE Observed: 09/07/2017 Status: F Source: [place] OFFICE VISIT 12:20 PM [facility] [address] [place] [address] [place] [address] OFFICE VISIT Date of Service: 09/07/17 MR#: [id number] Acct: [id number] Name: HANANE CRUZ Rep #: [id number] : 1950 Provider: Samuel Rodriguez MD Age/Sex: 67/F Location: [facility] [place] Status: Signed Intake Vital Signs09/07/17 Height 5 ft 8 in 09/07/17 Weight: 219 lb 09/07/17 Body Mass Index (BMI) 33.3 09/07/17 Blood Pressure 148/81 Intake Visit Reasons: 3 M FU Chief Complaint: Follow - Up. BP Is patient in pain?: No Allergies latex Allergy (Severe, Verified 09/07/17 09:57) rash titanium Allergy (Intermediate, Verified 09/07/17 10:02) sores Sulfa (Sulfonamide Antibiotics) Allergy (Unknown, Verified 09/07/17 09:57) other amlodipine Adverse Reaction (Verified 09/07/17 09:57) raises her bp nifedipine [From Adalat] Adverse Reaction (Verified 09/07/17 09:57) raises her bp allergy shot Adverse Reaction (Severe, Uncoded 09/07/17 09:57) seizure cholesterol medications Adverse Reaction (Severe, Uncoded 09/07/17 09:57) body aches Medications potassium chloride ER 10 mEq capsule,extended release 10 meq PO BID 04/26/17 [History Confirmed 09/07/17] Levothyroxine [Synthroid] 75 mcg PO QHS 05/08/17 [History Confirmed 09/07/17] Magnesium 500 mg PO DAILY 05/28/17 [History Confirmed 09/07/17] Natures Bounty Probiotic 1 tab PO BID 05/28/17 [History Confirmed 09/07/17] Psyllium Husk [Metamucil] 0.4 gm PO TID 05/28/17 [History Confirmed 09/07/17] Tumeric 500 mg PO DAILY 05/28/17 [History Confirmed 09/07/17] aspirin 81 mg tablet,delayed release 81 mg PO QDAY 05/30/17 [History Confirmed 09/07/17] fenofibrate micronized 43 mg capsule 43 mg PO QPM #30 cap 05/30/17 [Rx Confirmed 09/07/17] metoprolol tartrate 50 mg tablet 50 mg PO BID #180 tab 08/17/17 [Rx Confirmed 09/07/17] losartan 100 mg tablet 100 mg PO QDAY #90 tab 09/07/17 [Rx Confirmed 09/07/17] metformin ER 500 mg tablet,extended release 24 hr 500 mg PO QPM #180 tab 09/07/17 [Rx Confirmed 09/07/17] PFS Medical History Type 2 diabetes mellitus (Chronic) IBS (irritable bowel syndrome) (Chronic) Seasonal allergies (Chronic) Hyperlipemia (Chronic) Hypertension (Chronic) Potassium (K) deficiency (Chronic) Hypothyroidism (Chronic) Chronic constipation (Chronic) Surgical History History of back surgery (Acute) History of hysterectomy (Acute) History of tonsillectomy (Acute) Hx of toe surgery (Acute) Family History Father Alcoholism Myocardial infarction Mother Hypertension Asthma Breast cancer Brother Hypertension Seizures Social History Smoking Status: Never smoker alcohol intake: never substance use type: does not use what type of physical activity do you participate in: bicycling frequency: 5-6 times per week HPI HPI Chief Complaint: Follow - Up. BP Details: HANANE CRUZ, is a 67yo F who presents to the office today for follow-up on her chronic medical conditions. She reports feeling much better today and has no acute complaints. Last A1c went up. Patient states that she has been compliant with her medication and dietary modifications however she believes this may have been due to his weakness. She also reports better blood pressure control with an average blood pressure in the 120s over 70s. ROS Const Constitutional: No chills, fatigue, fever(s), frequent falls, malaise, weakness, sleep problems or change in appetite Eyes Eyes: No blurry vision, change in vision, double vision, discharge or visual disturbances ENT ENT: No abnormal hearing, ear pain, ear pressure, tinnitus or dizziness/vertigo Resp Respiratory: No cough, shortness of breath or wheezing Cardio Cardiology: No chest pain at rest, chest pain with exertion, shortness of breath, dyspnea on exertion, generalized swelling, irregular heart rhythm, lightheadedness, orthopnea, fast heart rate or palpitations Gastro GI: Positive for constipation; no abdominal pain, change in bowel habits, diarrhea, nausea/dyspepsia or vomiting Genitourinary-Female: No difficulty urinating, burning urination, painful urination, urinary incontinence, urinary frequency, urinary urgency, urinary hesitancy, urinary retention, Frequent nighttime urination/ nocturia, sexual problems, genital lesions, abnormal vaginal bleeding, pelvic pain, vaginal dryness, vaginal odor or Vaginal Itching Musc Musculoskeletal: No joint pain, back pain, limited range of motion, numbness or tingling Skin Skin: No change in skin color, itching, rash or wounds Breast Breast: No breast lump or breast pain Neuro Neurology: No frequent falls, weakness, abnormal hearing, numbness, tingling, unsteady gait/balance, dizziness, loss of vision, memory loss or visual disturbances Psych Psychiatric: No memory loss, No anxiety, No change in appetite, No depression, No Thoughts of harming yourself/Others Endo Endocrine: No fatigue, heat intolerance, increased thirst/drinking, increased hunger or increased urination Aller/Imm Allergy/Immunologic: No wheezing, itchy eyes or seasonal allergy symptoms Darwin/Lymp Hematologic/Lymphatic: No easy bleeding, easy bruising or enlarged lymph nodes Exam Const General: cooperative, no acute distress Orientation: alert, awake, oriented x3 HENMT Head: atraumatic, normocephalic Ears: hearing grossly normal bilaterally Resp Effort AND Inspection: normal respiratory effort, able to speak in complete sentences Auscultation: Bilateral: Clear to Auscultation Cardio Rate: tachycardic Rhythm: regular rhythm Heart Sounds: S1 normal, S2 normal GI Palpation: soft, no hepatosplenomegaly Neuro General: alert, awake, oriented x3, moves all extremities, CN's II-XI intact bilaterally Extrem General: no pedal edema Psych Appearance: grossly normal Mood: congruent mood Affect: normal affect Assessment AND Plan 1. Type 2 diabetes mellitus E11.9 Plan A1c up to 7.6 from 6.9. Increase metformin to 1000 mg daily. Dietary modifications again discussed. Repeat A1c in 3 months. 2. Hypertension I10 Plan Patient reports better control. Slightly elevated in office today however she states that she has had a stressful day. Continue current medications. Continue dietary and lifestyle modifications. 3. Hypothyroidism E03.9 Plan Stable. Continue current medications. 4. Hyperlipemia E78.5 Plan Improving however still significantly elevated. Lifestyle modifications discussed. Compliance with medication also advised. Currently taking fenofibrate every other day. This note was generated with [employer]or[employer] software. It may contain incorrect words, spelling, and punctuation that were not noted in checking the note before signing. Plan Detail Other Orders Orders: Other Medications Changed: Refilled: Coding Level of Care Code Off vis,est,level 3 Diagnoses Type 2 diabetes mellitus E11.9 Hypertension I10 Hypothyroidism E03.9 Hyperlipemia E78.5 09/07/17 1220 <Electronically signed by Samuel Rodriguez MD> Date Samuel Rodriguez MD Cosigner Signature: Date (if applicable) CC: HEMOGLOBIN A1C Collected: 09/03/2017 Status: F Source: [place] 8:35 AM [facility] [place] REPOSITORY TYPE CODE TESTS RESULT OUT OF RANGE REFERENCE UNITS LAB L501.9985 4.2-6.3 % High HGB A1C 7.6 Performed By: #### L501.9985, L500.4100 #### [facility] [address] [place], [place], [address] LIPID PROFILE Collected: 09/03/2017 Status: F Source: [place] 8:35 AM [facility] [place] REPOSITORY TYPE CODE TESTS RESULT OUT OF RANGE REFERENCE UNITS LAB L501.4900 200 mg/dL High CHOL 277 Result Comment: <200 mg/dL Desirable 200-240 mg/dL Borderline >240 mg/dL High Risk LAB L501.5000 mg/dL High TRIG 305 Result Comment: The drugs N-Acetylcysteine and Metamizole may falsely depress this assay. Serum Triglycerides Reference Interval Normal <150 mg/dL Borderline high 150 - 199 mg/dL High 200 - 499 mg/dL Very High > or = 500 mg/dL LAB L501.6400 mg/dL Normal HDL 40 Result Comment: The drugs N-Acetylcysteine and Metamizole may falsely depress this assay. Reference Range HDL <40 mg/dL Low HDL Cholesterol HDL >or= 60 mg/dL High HDL Cholesterol LAB L501.6500 0-130 mg/dL High LDL 176 LAB L501.6600 5-40 mg/dL High VLDL 61 Performed By: #### L501.9985, L500.4100 #### [facility] [address] [place], [address] OPERATIVE REPORT Observed: 06/01/2017 Status: F Source: J[place]US[place] 9:47 AM [facility] [place] REPOSITORY [facility] Medical Records Department [address] [place] [address] Operative Report 06/01/17 0946 MR#: [id number] Acct: [id number] Name: HANANE CRUZ Rep #: [id number] : 1950 67 From: Elmer Penn MD PCP: Samuel Rodriguez MD Status: REG [facility] [place] Location: [place] [address] Problem List (1) Screen for colon cancer Status: Acute Report of Operation Date of Procedure: 06/01/17 Pre-Operative Diagnosis: Screening colonoscopy Post-Operative Diagnosis: Normal colonoscopy Surgery/Procedure Performed:: Colonoscopy Description of Procedure: The major risks and benefits associated with the procedure were explained to the patient in detail. The patient verbalized understanding and agreement with the same. The patient was brought to the endoscopy suite. After adequate sedation was achieved, the patient was placed in the left lateral decubitus position and a digital rectal exam was performed. This examination was within normal limits. A well- lubricated colonoscope was then inserted into the rectum and advanced under direct visualization to the level of the cecum. The bowel prep was good. The cecum was identified by both visual and anatomic landmarks. A photograph was taken of the end of the cecum. The scope was then fully withdrawn while examining the color, texture, anatomy and integrity of the mucosa from the cecum to the anal canal. The findings were consistent with normal colonic mucosa. Over 6 minutes were taken to examine the colonic mucosa. Upon reaching the rectum the scope was retroflexed to examine the distal rectal vault. The scope was then straightened and was completely retrieved upon exiting the anal canal and the procedure was terminated. The patient was then transferred to the recovery room in stable condition. Recommendations for follow up: 10 years 06/01/17 0947 <Electronically signed by Elmer Penn MD> Date Elmer Penn MD CC: Elmer Penn MD; Samuel Rodriguez MD Signed HISTORY AND PHYSICAL Observed: 06/01/2017 Status: F Source: JESUSITA EXAM 9:23 AM [facility] [place] REPOSITORY [facility] Medical Records Department [address] [place] [address] History and Physical 06/01/17 0922 MR#: [id number] Acct: [id number] Name: HANANE CRUZ Rep #: [id number] : 1950 67 From: Elmer Penn MD PCP: Samuel Rodriguez MD Status: REG [facility] [place] Location: [place] [address] Past Medical/Surgical History - Planned Operation Planned Operative Procedure/s: colonoscopy Date of Operative Procedure: 06/01/17 Permit Signed: No S.O.S: No Is This Patient Having a Total Joint: No - Previous Hospitalizations/Surgeries HX Hospitalizations: Yes HX of Surgeries: hyster, tonsils and adenoids, back surgery , toe surgery (rt), Any Problems With Anesthesia: Yes - shaking You/Your Family Experience Fever (Hyperthermia) With Anes: No Cholinesterase deficiency: No - Cardiovascular Hx Chest Pain within Last 2 months: Yes - bp was elevated Hx of Irregular Heartbeat and/or Afib: No Hx Heart Attack: No Hx Congestive Heart Failure: No Hx Rheumatic Fever: No Hx Hypertension: Yes Hx Internal Defibrillator: No Hx Pacemaker: No Hx Cardiac Catheterization: No Hx Cardiac Surgery/Stents/Etc.: No Hx Stress Test: Yes - wch-20 yrs ago HX Edema: No Hx Pain in Legs when Walking/Leg Cramps: Yes - Respiratory Chronic Cough: No HX of Shortness of Breath: No Hoarseness: No Hx Chronic Obstructive Pulmonary Disease (COPD): No Hx Asthma: No Hx Emphysema: No Hx Sleep Apnea: No Hx Oxygen Use at Home: No Hx Respiratory Tract Infection/Cold (presently): No Do You Snore Loudly (louder than talking or can be heard): Yes Do You Often Feel Tired/ Fatigued/ Sleepy Dring Daytime?: Yes Has Anyone Observed You Stop Breathing During Sleep?: No Result (for STOP score): Positive Hx Smoking: No Smoking Status: Never smoker - Gastrointestinal Hx Gastroesophageal Reflux: No Hx Gastrointestinal Disorders: No Hx Gastrointestinal Bleed: No Hx Ulcer: No Hx Hiatal Hernia: No Difficulty Chewing/Swallowing: No Recent Onset of Swallowing Problems: Yes Special diet followed at home: No Hx Unplanned Weight Loss of 20#: No HX Unplanned Weight Gain of 20#: No - Neurological Hx Seizures: Yes HX Syncope/Blackout Spells/Unconsciousness: No Hx CVA/Stroke: No Hx Transient Ischemic Attacks (TIA): No Hx Multiple Sclerosis: No Hx Parkinson's Disease: No Hx Head/Neck Injury: Yes - fall Hx Headaches: No Hx Back Injury/Pain: Yes - surgery Recent Onset of Speech Difficulty: No Restless Legs: No Does patient have nerve stimulator: No Patient instructed to have device shut off: No Rep notified?: No - Blood Disorder Hx Leukemia: No Bleeding Tendencies: No Hx Deep Vein Thrombosis: No Hx High Cholesterol: Yes Blood Transmitted Disease: No Hx Hepatitis: No Hx Cirrhosis: No Hx Anemia: No Hx Blood Disorders: No - Reproduction : No Is Patient Lactating: No Hx Hysterectomy: No Hx Tubal Ligation: No Are You Post Menopause: Yes - Genitourinary Hx Renal Disease: No - Musculoskeletal Hx Arthritis: Yes Hx Rheumatoid Arthritis: No Hx Gout: No Recent Onset of an Orthopedic Problem: No - Endocrine Hx Diabetes: Yes - 11-15 yrs - re DM for years Insulin: No Thyroid Disease: Yes - on meds Hx Steroid Therapy: No - Psycho/Social Hx Substance Use: No Hx Alcohol Use: No Hx Anxiety: No Hx Depression: No Mental Illness: No Hx Dementia: No - Miscellaneous Hx Cancer: No Recent Exposure to Contagious Disease: No Active MRSA: No Hx of C-Diff: No Any Loose Teeth: No Allergies latex Allergy (Severe, Verified 05/09/17 15:09) rash Sulfa (Sulfonamide Antibiotics) Allergy (Unknown, Verified 05/09/17 15:09) other unknown amlodipine Adverse Reaction (Verified 05/28/17 11:57) raises her bp nifedipine [From Adalat] Adverse Reaction (Verified 05/28/17 11:55) raises her bp allergy shot Adverse Reaction (Severe, Uncoded 05/28/17 12:14) seizure cholesterol medications Adverse Reaction (Severe, Uncoded 05/09/17 15:09) body aches Home Medications Medication Instructions Recorded losartan 50 mg tablet 50 mg PO BID 04/26/17 - Discharge Is Pt Admitted From a Long Term, or a Alf: No Who Depends On You At Home: lives with After D/C, Where Do you Plan to Go: Return Home - From the PAT History Number of Risk Factors: 4 - Physical Exam General: Alert, Oriented x3, Cooperative HEENT: Atraumatic, PERRLA Lungs: Normal air movement Cardiovascular: Regular rate, Regular Rhythm Abdomen: Soft, Non Tender, Non-Distended Vital Signs Temp Pulse Resp BP Pulse Ox 97.3 F L 65 16 143/83 H 98 06/01/17 08:04 06/01/17 08:04 06/01/17 08:04 06/01/17 08:04 06/01/17 08:04 Oxygen Delivery Method Room Air Weight: 216 lb 4.375 oz Body Mass Index (BMI) 32.8 POC Glucose POC Glucose 143 H Assessment/Plan 67-year-old female for screening colonoscopy 1. Patient reports she is not having any issues at this time. She reports no abdominal pain or blood in her stool. She has no inadvertent weight loss. She has never had a colonoscopy in the past. He has no family history of colon cancer. 2. I explained endoscopy in detail to the patient. I explained the risks including but not limited to stroke or heart attack with anesthesia, perforation of the GI tract, bleeding, infection. I explained that any of these could necessitate further emergency surgery. The patient understands and all questions were answered sufficiently. The patient wishes to proceed with procedure. Elmer Penn MD Pager: [facility] [address], [address] [address] Office: Surgery Risks - Colonoscopy Risks Include but are not Limited To: Risks include but are not limited to: Bleeding, perforation requiring further surgery, inability to complete colonoscopy requiring barium enema. 06/01/17 0923 <Electronically signed by Elmer Penn MD> Date Elmer Penn MD Cosigner Signature: Date (if applicable) CC: Elmer Penn MD; Samuel Rodriguez MD Signed BEDSIDE GLUCOSE Collected: 06/01/2017 Status: F Source: [place] 8:08 AM [facility] [place] REPOSITORY TYPE CODE TESTS RESULT OUT OF REFERENCE UNITS RANGE LAB L501.080 70-110 mg/dL High BEDSIDE GLU 143 Result Comment: MANAGEMENT OF PATIENT CARE PER NURSING PROTOCOL Performed By: #### L501.080 #### [facility] Point of Care [address] [place] [address] INTERNAL MEDICINE Observed: 05/30/2017 Status: F Source: [place] OFFICE VISIT 10:06 AM [facility] [place] REPOSITORY [facility] [address] [place] [address] OFFICE VISIT Date of Service: 05/30/17 MR#: [id number] Acct: [id number] Name: HANANE CRUZ Rep #: [id number] : 1950 Provider: Ronnie Valdez NP Age/Sex: 67/F Location: [facility] Status: Signed with Addenda ADDENDUM by Ronnie Valdez NP on 05/30/17 at 1006 Addendum entered and electronically signed by BHARGAV Kirby 05/30/17 10:06: Addendum exam: cardio rate normal HPI Details: HANANE CRUZ, is a 67 F who presents to the office today for 05/30/17 1006 <Electronically signed by Ronnie IZQUIERDOC> Date Ronnie Valdez cc: * Signed Intake Vital Signs05/30/17 Height 5 ft 8 in Intake Visit Reasons: 2 WK FU Chief Complaint: Follow - Up. Is patient in pain?: No Allergies latex Allergy (Severe, Verified 05/09/17 15:09) rash Sulfa (Sulfonamide Antibiotics) Allergy (Unknown, Verified 05/09/17 15:09) other amlodipine Adverse Reaction (Verified 05/28/17 11:57) raises her bp nifedipine [From Adalat] Adverse Reaction (Verified 05/28/17 11:55) raises her bp allergy shot Adverse Reaction (Severe, Uncoded 05/28/17 12:14) seizure cholesterol medications Adverse Reaction (Severe, Uncoded 05/09/17 15:09) body aches Medications losartan 50 mg tablet 50 mg PO BID 04/26/17 [History Confirmed 05/28/17] metformin ER 500 mg tablet,extended release 24 hr 500 mg PO QHS 04/26/17 [History Confirmed 05/28/17] potassium chloride ER 10 mEq capsule,extended release 10 meq PO BID 04/26/17 [History Confirmed 05/28/17] Levothyroxine [Synthroid] 75 mcg PO QHS 05/08/17 [History Confirmed 05/28/17] metoprolol tartrate 50 mg tablet 50 mg PO BID 05/14/17 [History Confirmed 05/28/17] Magnesium 500 mg PO DAILY 05/28/17 [History Confirmed 05/28/17] Natures Bounty Probiotic 1 tab PO BID 05/28/17 [History] Psyllium Husk [Metamucil] 0.4 gm PO TID 05/28/17 [History Confirmed 05/28/17] Tumeric 500 mg PO DAILY 05/28/17 [History Confirmed 05/28/17] aspirin 81 mg tablet,delayed release 81 mg PO QDAY 05/30/17 [History Confirmed 05/30/17] fenofibrate micronized 43 mg capsule 43 mg PO QPM #30 cap 05/30/17 [Rx Confirmed 05/30/17] [facility] Medical History Type 2 diabetes mellitus (Chronic) IBS (irritable bowel syndrome) (Chronic) Seasonal allergies (Chronic) Hyperlipemia (Chronic) Hypertension (Chronic) Potassium (K) deficiency (Chronic) Hypothyroidism (Chronic) Chronic constipation (Chronic) Surgical History History of back surgery (Acute) History of hysterectomy (Acute) History of tonsillectomy (Acute) Hx of toe surgery (Acute) Family History Father Alcoholism Myocardial infarction Mother Hypertension Asthma Breast cancer Brother Hypertension Seizures Social History Smoking Status: Never smoker alcohol intake: never substance use type: does not use what type of physical activity do you participate in: bicycling frequency: 5-6 times per week HPI HPI Chief Complaint: Follow - Up. Details: HANANE CRUZ, is a 67 F who presents to the office today for a follow-up of her hypertension. She has a past medical history as listed above The patient states that since being started on the metoprolol and increasing the dose to 50 mg twice daily, she has been doing exceptionally well. She states that her chest pain that occurred with her high blood pressure has completely resolved. She states that her blood pressures at home average 120s over 80s and her pulse is average 70s-80s as well. She denies any lightheadedness or easy fatigue. She does state that now that her blood pressure is well controlled she is able to do 40 minutes of walking per day and 20 minutes of the exercise bicycle. She states that she feels much improved since getting her blood pressure under control. She does state that she continues to have chronic constipation which is alleviated with the use of MiraLAX and Dulcolax as needed. She does state she is having a colonoscopy later this week. In regard to her diabetes, she states her average blood sugars are 120s fasting and that she is up-to-date on her yearly eye and podiatry exam. Her lab work was reviewed with her and she does have hyper lipidemia with hypertriglyceridemia as well. Patient states that she has had high triglycerides her whole life and that she has been tried on multiple medications including all statin therapy which she has been unable to tolerate due to the side effects. She is currently routinely seen a dietitian for her diabetes. The patient otherwise denies any fever, chills, nausea, vomiting, shortness of breath, chest pain or pressure, palpitations, orthopnea, lower extremity edema, syncope or presyncopal episodes. ROS Const Constitutional: No weight change, body ache, chills, fatigue, sleep problems, fever(s), change in appetite, snoring, weakness, frequent falls, headache(s) or excessive sweating Eyes Eyes: No change in vision, eye pain, light sensitivity or blurry vision ENT ENT: No headache(s), abnormal hearing, ear pain, tinnitus, nasal congestion, sore throat or neck pain Resp Respiratory: No snoring, cough, shortness of breath or wheezing Cardio Cardiology: No excessive sweating, chest pain at rest, chest pain with exertion, shortness of breath, dyspnea on exertion, palpitations, orthopnea or lightheadedness Gastro GI: No abdominal pain, change in bowel habits, constipation, diarrhea, vomiting, nausea/dyspepsia or cramping Genitourinary-Female: No burning urination, painful urination, urinary incontinence, urinary frequency, abnormal vaginal bleeding, pelvic pain or other Musc Musculoskeletal: No neck pain, abnormal walking, joint pain, back pain, limited range of motion, numbness or tingling Skin Skin: No redness, dry skin, itching, lesions, wounds or rash Neuro Neurology: No weakness, frequent falls, headache(s), abnormal hearing, abnormal walking, numbness, tingling, abnormal speech, dizziness or memory loss Psych Psychiatric: No change in appetite, No memory loss, No anxiety, No depression, No Thoughts of harming yourself/Others Endo Endocrine: No fatigue, excessive sweating, cold intolerance, increased thirst/drinking, heat intolerance, flushing or increased hunger Aller/Imm Allergy/Immunologic: No wheezing, itchy eyes, hives or seasonal allergy symptoms Darwin/Lymp Hematologic/Lymphatic: No easy bleeding, easy bruising or enlarged lymph nodes Exam Const General: cooperative, no acute distress Orientation: alert, awake, oriented x3 [facility] Head: atraumatic, normocephalic Ears: hearing grossly normal bilaterally Resp Effort AND Inspection: normal respiratory effort, able to speak in complete sentences Auscultation: Bilateral: Clear to Auscultation Cardio Rate: tachycardic Rhythm: regular rhythm Heart Sounds: S1 normal, S2 normal GI Palpation: soft, no hepatosplenomegaly Neuro General: alert, awake, oriented x3, moves all extremities, CN's II-XI intact bilaterally Extrem General: no pedal edema Psych Appearance: grossly normal Mood: congruent mood Affect: normal affect Assessment AND Plan 1. HTN (hypertension) I10 Plan Hypertension: Controlled on current medications of metoprolol 50 mg twice daily, will not make any adjustments at this time. Will continue with current medication regimen, risk factor reduction, and lifestyle modifications. Discussed dietary changes that should be considered which include reducing the amount of sodium intake. 2. Type 2 diabetes mellitus E11.9 suspected Plan Diabetes: Stable at this time. The patient's most recent A1c was reviewed and was 6.9 Will not make any adjustments to their diabetic medication regimen at this time. Discussed with patient lifestyle changes, risk factor reduction, and the benefits of maximizing nutrition and exercise. Patient verbalized understanding. Patient to follow- up in 3 months with repeat A1c will be done prior. Patient is current on their yearly eye exam and is seeing podiatry for their diabetic foot exam. She will continue seeing the diabetic communication studies professor on a routine basis and working on improving her diet. Orders Orders: 3. Hyperlipidemia E78.5 Plan The patient does have hyperlipidemia with hypertriglyceridemia as well. She states that she has been tried on many different medications in the past and is unable to tolerate all statin therapy. She is unsure whether or not she has tried fenofibrate before in the past for her triglycerides, but is willing to try a very low dose of this as she states that it she is very sensitive to medications. Will start on fenofibrate and she will continue with lifestyle changes and modifications and will recheck a lipid panel in 3 months. Orders Orders: 4. Chronic constipation K59.09 Plan Patient will continue with daily MiraLAX and Dulcolax as needed, unwilling to try other medications due to cost. She is having a screening colonoscopy done later this week. Plan Detail Other Medications New: Follow Up 3 months or sooner Coding Level of Care Code Off vis,est,level 4 Diagnoses HTN (hypertension) I10 Type 2 diabetes mellitus E11.9 Hyperlipidemia E78.5 Chronic constipation K59.09 05/30/17 1004 <Electronically signed by Ronnie DURANT> Date Ronnie DURANT Cosigner Signature: Date (if applicable) CC: EMERGENCY DEPARTMENT Observed: 05/12/2017 Status: F Source: JESUSITA SUMMARY 4:17 PM [facility] REPOSITORY [facility] Medical Records Department [address] [place] [address] Emergency Department Summary 05/08/172 MR#: [id number] Acct: [id number] Name: HANANE CRUZ Rep #: [id number] : 1950 67 From: Marvin Mcmanus DO PCP: Samuel Rodriguez MD Status: DEP ER - ER Visit Summary Date of Service: 05/08/17 Chief Complaint: Hypertension History of Present Illness: The patient is a 67 F Zentz with elevated blood pressure. Patient has been on iodine for 15 years. She states it makes her constipated but she has dealt with it. She recently changed doctors and was to get off of the clonidine. She was told to stop the clonidine and begin Norvasc. She states that within 30 minutes of taking the Norvasc she had pain in her back and belching headache and just felt poorly. Her blood pressures were up and down. She has facial flushing. This was 2 weeks ago. She states that over the past 2 weeks she has started the Norvasc stopped it went back on the clonidine stopped it. She most recently doubled her losartan to 100 mg twice a day try the Norvasc and needed to stop it. Today she took the losartan twice and some clonidine twice. Patient has an appointment with her doctor tomorrow but is at a point tonight where she feels that she is going to if she does not come in. Physical Examination: Blood pressure 197/99 temperature 98.9 heart rate of 102 respirations are 18 pulse ox 97% Gen: Well-nourished well-developed Head: Normocephalic atraumatic Eyes: Perrl EOMI ENT: TMs clear no rhinorrhea moist mucous membranes Neck: Supple no lymphadenopathy no JVD nontender CVS: Regular rate rhythm no murmurs normal S1-S2 Respiratory: No distress clear to auscultation bilaterally chest nontender Abdomen: Soft nontender nondistended normal bowel sounds no masses Back: Nontender Extremity: Nontender no edema Skin: Normal color no rash Neuro: alert orientated 3 CN II-XII intact normal strength sensation reflexes gait cerebellar Psych: Patient is very anxious Test Results: CBC BMP and troponin were negative. EKG is a normal sinus rhythm. Chest x-ray is negative. Emergency Department Course and Treatment: Patient received a dose of hydralazine. Her blood pressure is coming down. In speaking with the patient I believe there is a significant component of psychosomatic issues. The patient is anxious. That alone is going to have her blood pressure go up. She needs to understand that most people coming off of long-term use of clonidine will have some rebound issues. At this point I would discharge the patient home have her follow-up with her doctor tomorrow as scheduled. I will leave adjusting blood pressure medicines to them as they are able to follow her up. Impression: 1. Hypertensive urgency This note was generated with StrongSteam dictation software. It may contain incorrect words, spelling, and punctuation that were not noted in review of the chart prior to signing ED Disposition - Plan for ED Patient: Disposition: Home or Assisted Living Chief Complaint: Hypertension Instructions: ED Hypertension Conf Out Of Control Referrals: Samuel Rodriguez MD [Primary Care Provider] - Keep Solitario appointment What to do if you have Problems For any increased pain, shortness of breath, bleeding, nausea or vomiting, chest pain, or any unexpected problems, contact your Primary Care Provider. Call [facility] ([phone]) or report to the closest Emergency Room. Call 911 if necessary. 05/12/17 1617 <Electronically signed by Marvin Mcmanus DO> Date Marvin Mcmanus DO Cosigner Signature (If Indicated): Date CC: Samuel Rodriguez MD 12 LEAD ELECTROCARDIOGRAM Observed: 05/10/2017 Status: F Source: JEUSSITA 3:00 PM [facility] REPOSITORY [facility] Cardiovascular Services [address] [place] [address] 12 Lead EKG 05/08/173 MR#: [id number] Acct: [id number] Name: HANANE CRUZ Rep #: [id number] : 1950 67 From: Juliocesar Caceres MD Attending Dr: Status: DEP ER Ordering Dr: Marvin Mcmanus DO Date: 05/08/17 Location: ED Sex: F C Admitted: Test Reason : CHEST TIGHTNESS Blood Pressure : / mmHG Vent. Rate : 095 BPM Atrial Rate : 095 BPM P-R Int : 158 ms QRS Dur : 080 ms QT Int : 382 ms P-R-T Axes : 013 050 011 degrees QTc Int : 480 ms Normal sinus rhythm Normal ECG Confirmed by JULIOCESAR CACERES MD ([id number]), sound editor FREDERICK QUINTERO ([id number]) on 05/10/2017 3:00:02 PM Referred By: MAYUR Confirmed By:JULIOCESAR CACERES MD 05/10/17 1500 Date Juliocesar Caceres MD CC: Marvin Mcmanus DO; Samuel Rodriguez MD Signed INTERNAL MEDICINE Observed: 05/09/2017 Status: F Source: MONUMENT OFFICE VISIT 6:14 PM [facility] [address] [place] [address] [place] [address] OFFICE VISIT Date of Service: 05/09/17 MR#: [id number] Acct: [id number] Name: HANANE CRUZ Anisa Rep #: [id number] : 1950 Provider: Samuel Rodriguez MD Age/Sex: 67/F Location: [facility] Status: Signed Intake Vital Signs05/09/17 Height 5 ft 8 in 05/09/17 Weight: 217 lb 05/09/17 Body Mass Index (BMI) 33.0 05/09/17 Blood Pressure 142/92 Intake Visit Reasons: 2 WK F/U Chief Complaint: Follow - Up. Is patient in pain?: Yes (Headache) Pain scale (1-10): 5 Allergies latex Allergy (Severe, Verified 05/09/17 15:09) rash Sulfa (Sulfonamide Antibiotics) Allergy (Unknown, Verified 05/09/17 15:09) other cholesterol medications Adverse Reaction (Severe, Uncoded 05/09/17 15:09) body aches Medications losartan 50 mg tablet 100 mg PO QDAY 04/26/17 [History Confirmed 05/09/17] metformin ER 500 mg tablet,extended release 24 hr 500 mg PO QHS 04/26/17 [History Confirmed 05/09/17] potassium chloride ER 10 mEq capsule,extended release 10 meq PO BID 04/26/17 [History Confirmed 05/09/17] Levothyroxine [Synthroid] 75 mcg PO QHS 05/08/17 [History Confirmed 05/09/17] metoprolol tartrate 25 mg tablet 25 mg PO BID #30 tab 05/09/17 [Rx Confirmed 05/09/17] PFSH Medical History Type 2 diabetes mellitus (Chronic) IBS (irritable bowel syndrome) (Chronic) Seasonal allergies (Chronic) Hyperlipemia (Chronic) Hypertension (Chronic) Potassium (K) deficiency (Chronic) Hypothyroidism (Chronic) Chronic constipation (Chronic) Surgical History History of back surgery (Acute) History of hysterectomy (Acute) History of tonsillectomy (Acute) Hx of toe surgery (Acute) Family History Father Alcoholism Myocardial infarction Mother Hypertension Asthma Breast cancer Brother Hypertension Seizures Social History Smoking Status: Never smoker alcohol intake: never substance use type: does not use what type of physical activity do you participate in: bicycling frequency: 5-6 times per week HPI HPI Chief Complaint: Follow - Up. Details: HANANE CRUZ, is a 67 F who presents to the office today for follow up. She was started on Amlodipine at her last with instructions to jesenia off Clonidine due to persistent constipation on Clonidine and poorly controlled blood pressure. She however states that while on Amlodipine, she had persistently elevated heart rate and flu like symptoms which appeared to resolve on discontinuing. She was seen in the ER yesterday due to feeling of unwell and elevated HR and was given Tropol which helped. She denies any complaints at this time. ROS Const Constitutional: Positive for headache(s); no anorexia, fatigue, malaise or abnormal sleep pattern Eyes Eyes: No blurry vision, dry eyes or eye pain ENT ENT: Positive for headache(s); no abnormal hearing or ear pressure Resp Respiratory: No cough or chest congestion Cardio Cardiology: No chest pain at rest, leg pain with exertion or dyspnea on exertion Gastro GI: Positive for constipation; no abdominal pain Musc Musculoskeletal: Positive for body aches and back pain; no abnormal walking Neuro Neurology: Positive for headache(s); no abnormal hearing, confusion or abnormal walking Psych Psychiatric: No confusion, No abnormal sleep pattern Endo Endocrine: No fatigue Exam Const General: cooperative, no acute distress Orientation: alert, awake, oriented x3 HENMT Head: atraumatic, normocephalic Ears: hearing grossly normal bilaterally Resp Effort AND Inspection: normal respiratory effort, able to speak in complete sentences Auscultation: Bilateral: Clear to Auscultation Cardio Rate: tachycardic Rhythm: regular rhythm Heart Sounds: S1 normal, S2 normal GI Palpation: soft, no hepatosplenomegaly Neuro General: alert, awake, oriented x3, moves all extremities, CN's II-XI intact bilaterally Extrem General: no pedal edema Psych Appearance: grossly normal Mood: congruent mood Affect: normal affect Assessment AND Plan 1. Hypertension I10 Plan Better however not optimally controlled. She appeared to have poorly tolerated amlodipine. Received Tropol in the ED and had no problems. Jesenia off clonidine over 72 hours. Start Metoprolol 12.5mg BID. OK to increase to 25mg BID if well tolerated after 3 days. Continue other life style modifications. Follow up in 2 weeks. 2. Chronic constipation K59.09 Plan Symptoms were said to have improved somewhat on stopping Clonidine. Affording Amitiza or Linzess not feasible at this time Advised to take Miralax BID as well as Dulcolax 100mg BID. Continue daily prune juice and Metamucil. Dietary modifications also discussed. Follow up in 2 weeks. This note was generated with StrongSteam dictation software. It may contain incorrect words, spelling, and punctuation that were not noted in checking the note before signing. Plan Detail Other Medications New: Discontinued: Coding Level of Care Code Off vis,est,level 3 Diagnoses Hypertension I10 Chronic constipation K59.09 05/09/17 0749 <Electronically signed by Samuel Rodriguez MD> Date Ambertu Bakarikathymeseret CURRIE Cosigner Signature: Date (if applicable) CC: CBC W/DIFF, AUTOMATED Collected: 05/08/2017 Status: F Source: JESUSITA 8:05 PM [facility] REPOSITORY TYPE CODE TESTS RESULT OUT OF RANGE REFERENCE UNITS LAB L100.1000 4.4-11.0 K/mm3 Normal WBC 7.2 LAB L100.1200 4.2-5.4 M/mm3 Normal RBC 4.97 LAB L100.1300 12.0-15.0 g/dl Normal HGB 15.0 LAB L100.1400 37-47 % Normal HCT 45.2 LAB L100.1500 81-99 fL Normal MCV 90.9 LAB L100.1600 27.0-32.0 pg Normal MCH 30.2 LAB L100.1700 32-36 g/gl Normal MCHC 33.2 LAB L100.1810 11.6-14.6 % Normal RDW CV 12.2 LAB L100.1820 35.1-43.9 fl Normal RDW SD 40.1 LAB L100.1900 150-450 K/mm3 Normal PLT 326 LAB L100.2000 6.2-12.0 fl Normal MPV 9.0 LAB L100.2100 47-70 % Normal NEUT% 58.6 LAB L100.2200 19-41 % Normal LY% 31.3 LAB L100.2300 0-10 % Normal MONO% 8.2 LAB L100.2400 0-5 % Normal EO% 1.4 LAB L100.2500 0-1 % Normal BASO% 0.1 LAB L100.2550 0.0-0.9 % Normal IM GRAN % 0.400 Result Comment: IG% - Immature Granulocytes (promyelocytes, myelocytes and metamyelocytes) > 1% indicates that a LEFT SHIFT is Present. LAB L100.2620 2.0-7.7 X10 3/uL Normal Absolute Neut 4.2 LAB L100.2720 0.83-4.51 X10 3/ul Normal Absolute Lymph 2.25 Performed By: #### L100.0100 #### [facility] [address] [place], [address] BASIC METABOLIC Collected: 05/08/2017 Status: F Source: JESUSITA PROFILE (BMP) 8:05 PM [facility] REPOSITORY Order Comment: 'TROP' Serial specimen #1, #2, #3, or #4: 1 TYPE CODE TESTS RESULT OUT OF RANGE REFERENCE UNITS LAB L501.0100 74-106 mg/dL High GLU 125 Result Comment: Fasting Glucose result from 100 to 125 mg/dL suggests IMPAIRED HOMEOSTASIS per A.D.A. criteria. Please note revised GLUCOSE reference range effective 2017. LAB L501.1000 7-18 mg/dL Normal BUN 12 LAB L501.1100 0.55-1.02 mg/dL Normal CREAT,SERUM 0.74 Result Comment: The validity of the calculated GFR AND GFRAA in patients over 70 years has not been determined. Clinical correlation is essential. LAB L501.1110 >60 mL/min Normal EST GFR 84 Result Comment: Non- GFR Calc LAB L501.1115 >60 mL/min Normal EST GFR - AA 101 Result Comment: GFR Calc LAB L501.1255 ml/min Normal Estimated CRCL 55.82 LAB L501.1300 10-20 RATIO Normal BUN/CRE 16.3 LAB L501.2200 8.5-10 mg/dL Normal .1 CA 8.6 LAB L501.5300 136-14 mmol/L Normal 5 NA 141 LAB L501.5600 3.5-5. mmol/L Normal 1 K 3.9 LAB L501.5900 98-107 mmol/L Normal CL 106 LAB L501.6100 21.0-3 mmol/L Normal 2.0 CO2 26.0 LAB L501.6200 5-15 Normal GAP 9 Performed By: #### L500.2500, L501.4010 #### [facility] [address] [place], [place], [address] TROPONIN-I Collected: 05/08/2017 Status: F Source: JESUSITA 8:05 PM [facility] REPOSITORY Order Comment: 'TROP' Serial specimen #1, #2, #3, or #4: 1 TYPE CODE TESTS RESULT OUT OF RANGE REFERENCE UNITS LAB L501.4010 <0.06 ng/mL Normal < 0.02 TROPONIN-I Result Comment: TROPONIN-I EXPECTED VALUES <0.05 NEGATIVE 0.06 - 0.59 AT RISK OF FL > OR = 0.60 SUGGEST FL Performed By: #### L500.2500, L501.4010 #### [facility] [address] [facility] [place], [address] CHEST 1 VIEW Observed: 05/08/2017 Status: F Source: MONUMENT (PORTABLE) 7:56 PM [facility] REPOSITORY [facility] Imaging Services [address] [place] [address] Chest 1 View (Portable) MR#: [id number] Acct: [id number] Name: HANANE CRUZ Rep #: [id number] : 1950 F 67 From: Sheldon Pierson PCP: Samuel Rodriguez MD Status: REG ER Study: Chest 1 View (Portable) Date of Exam: 05/08/17 Exam# [id number] Ordering Dr: Marvin Mcmanus DO STUDY: X-RAY CHEST REASON FOR EXAM: Female, 67 years old. High blood pressure TECHNIQUE: Single AP portable view of the chest. COMPARISON: None. FINDINGS: EKG lines overlying the chest. The lungs are clear and expanded. There is no demonstrated pleural abnormality. Normal size heart. Normal mediastinum and ruth. Normal visualized pulmonary arteries. Normal visualized aortic arch and descending thoracic aorta. Normal visualized thoracic spine. Normal visualized ribs, clavicles, and shoulders. There is no demonstrated abnormality of the visualized soft tissue structures of the upper abdomen. RAD/Chest 1 View (Portable) IMPRESSION: No acute cardiopulmonary disease. Electronically Signed: Sheldon Pierson DO at 20:31 EDT , Service support , CC: Marvin Mcmanus DO; Samuel Rodriguez MD Exhaust And Muffler Fitter: Signed INTERNAL MEDICINE Observed: 04/27/2017 Status: F Source: MONUMENT OFFICE VISIT 4:58 PM [facility] [address] [place] [address] OFFICE VISIT Date of Service: 04/26/17 MR#: [id number] Acct: [id number] Name: HANANE CRUZ Rep #: [id number] : 1950 Provider: Samuel Rodriguez MD Age/Sex: 67/F Location: [facility] [place] [facility] Status: Signed Intake Vital Signs04/26/17 Weight: 226 lb 04/26/17 Blood Pressure 170/90 04/26/17 Blood Pressure Location Rt brachial Intake Visit Reasons: EST NEW PCP Chief Complaint: Establish Care. Is patient in pain?: No Allergies latex Allergy (Severe, Verified 04/26/17 13:51) rash Sulfa (Sulfonamide Antibiotics) Allergy (Unknown, Verified 04/26/17 13:51) other cholesterol medications Adverse Reaction (Severe, Uncoded 04/26/17 13:51) body aches Medications amlodipine 5 mg tablet 5 mg PO QDAY #30 tab 04/26/17 [Rx Confirmed 04/26/17] clonidine HCl 0.2 mg tablet 0.2 mg PO Q12H 04/26/17 [History Confirmed 04/26/17] levothyroxine 75 mcg tablet PO 04/26/17 [History Confirmed 04/26/17] losartan 50 mg tablet 50 mg PO QDAY 04/26/17 [History Confirmed 04/26/17] lubiprostone 24 mcg capsule 24 mcg PO BID #60 cap 04/26/17 [Rx Confirmed 04/26/17] metformin ER 500 mg tablet,extended release 24 hr 500 mg PO QDAY 04/26/17 [History Confirmed 04/26/17] potassium chloride ER 10 mEq capsule,extended release 10 meq PO BID 04/26/17 [History Confirmed 04/26/17] PFSH Medical History Type 2 diabetes mellitus (Chronic) IBS (irritable bowel syndrome) (Chronic) Seasonal allergies (Chronic) Hyperlipemia (Chronic) Hypertension (Chronic) Potassium (K) deficiency (Chronic) Hypothyroidism (Chronic) Chronic constipation (Chronic) Surgical History History of back surgery (Acute) History of hysterectomy (Acute) History of tonsillectomy (Acute) Hx of toe surgery (Acute) Family History Father Alcoholism Myocardial infarction Mother Hypertension Asthma Breast cancer Brother Hypertension Seizures Social History Smoking Status: Never smoker alcohol intake: never substance use type: does not use what type of physical activity do you participate in: bicycling frequency: 5-6 times per week HPI HPI Chief Complaint: Establish Care. Details: HANANE CRUZ, is a 67yo F who presents to the office today to establish care. She also has some complaints. She has a PMH of Hypertension, Hyperlipidemia, Diabetes mellitus type 2, Chronic Constipation, Hypothyroidism and Irritable Bowel Syndrome. She is most concerned about her chronic constipation. She states that this has been ongoing for several years. She currently takes Prune juice, ducolax ,metamucil and miralax daily without any significant help. She denies weight changes, blood in her stool or abdominal pain. She has not had a colonoscopy. Blood pressure is noted to be elevated in office. She reports poorly controlled blood pressure over the last couple of years but has been hypertensive for at least 12. She is currently on Clonidine and Losartan and states that she experiences rebound hypertension occasionally. ROS Const Constitutional: Positive for headache(s); no weight change, body ache, chills, fatigue, sleep problems, fever(s), change in appetite, snoring, weakness, frequent falls or excessive sweating Eyes Eyes: No change in vision, eye pain, light sensitivity or blurry vision ENT ENT: Positive for headache(s); no abnormal hearing, ear pain, tinnitus, nasal congestion, sore throat or neck pain Resp Respiratory: No snoring, cough or wheezing Cardio Cardiology: No excessive sweating, chest pain with exertion, shortness of breath, dyspnea on exertion, palpitations, orthopnea or lightheadedness Gastro GI: Positive for constipation; no abdominal pain, change in bowel habits, diarrhea, vomiting, nausea/dyspepsia or cramping Musc Musculoskeletal: Positive for joint pain and back pain; no neck pain, abnormal walking or limited range of motion Skin Skin: No redness, dry skin, itching, lesions, wounds or rash Neuro Neurology: Positive for headache(s); no weakness, frequent falls, abnormal hearing, abnormal walking, abnormal speech, dizziness or memory loss Psych Psychiatric: No change in appetite, No memory loss, No anxiety, No depression, No Thoughts of harming yourself/Others Endo Endocrine: No fatigue, excessive sweating, cold intolerance, increased thirst/drinking, heat intolerance, flushing or increased hunger Aller/Imm Allergy/Immunologic: No wheezing, itchy eyes, hives or seasonal allergy symptoms Darwin/Lymp Hematologic/Lymphatic: No easy bleeding, easy bruising or enlarged lymph nodes Exam Const General: cooperative, no acute distress Orientation: alert, awake, oriented x3 HENMT Head: atraumatic, normocephalic Ears: hearing grossly normal bilaterally Resp Effort AND Inspection: normal respiratory effort, able to speak in complete sentences Auscultation: Bilateral: Clear to Auscultation Cardio Rate: regular rate Rhythm: regular rhythm Heart Sounds: S1 normal, S2 normal GI Palpation: soft, no hepatosplenomegaly Neuro General: alert, awake, oriented x3, moves all extremities, CN's II-XI intact bilaterally Extrem General: no pedal edema Psych Appearance: grossly normal Mood: congruent mood Affect: normal affect Assessment AND Plan 1. Chronic constipation K59.09 Plan No relief despite current measures including miralax, metamucil, ducolax and prune juice. Never had a colonoscopy. Referred. Linzess not well covered, will try Amitiza. Follow up in 2 weeks. Orders Referrals: 2. Hypertension I10 Plan Poorly controlled. Currently on Clonidine and Losartan. Jesenia off Clonidine due to Constipation. Start Amlodipine 5mg daily and increase to 10mg daily after 3 days if systolic Bp still greater than 150. Keep a blood pressure log and follow up in 2 weeks with log. Life style modifications. 3. Metabolic syndrome E88.81 Plan Patient with hypertension, Type 2 DM, Hyperlipidemia and predominant central obesity. Currently not on a statin, will obtain records from prior PCP. Last A1C was 6.9. Currently on 500mg BID of Metformin. Adjust at next visit. Will refer to the why weight program Will follow. Orders Referrals: Plan Detail Other Orders Referrals: Other Medications New: Discontinued: linaclotide (Linzess) swallow whole OR open capsule and sprinkle onto a145 mcg PO QAM pplesauce; administer at least 30 min before first meal of day Disconti nued Reason: Order Changed Follow Up 2 Weeks Coding Level of Care Code Off vis,new,level 4 Diagnoses Chronic constipation K59.09 Hypertension I10 Metabolic syndrome E88.81 04/27/17 1658 <Electronically signed by Samuel Rodriguez MD> Date Samuel Rodriguez MD Cosigner Signature: Date (if applicable) CC: ALLERGIES ALLERGIES DATE TYPE / CODE NAME / CODE REACTION SEVERITY SOURCE 01/22/2018 Drug Sulfa Other Unknown [facility] Allergy/[id number]( (Sulfonamide [facility] SNOMED [facility]) Antibiotics)/F[facility] 9438692(RXNORM) Repository 01/22/2018 Drug nifedipine/F0060 raises her bp Unknown [place] Allergy/434920334( 84203(RXNORM) [facility] SNOMED [facility]) Hospital Repository 01/22/2018 Drug titanium/V026725 sores [place] Allergy/245966132( 910(RXNORM) [facility] SNOMED CT) Hospital Repository 01/22/2018 Drug amlodipine/F0060 raises her bp Unknown [facility] Allergy/083685966( 28592(RXNORM) [facility] SNOMED CT) Hospital Repository 01/22/2018 Drug latex/[id number] Rash [place] Allergy/291110519( (RXNORM) [facility] SNOMED CT) Hospital Repository 01/22/2018 Miscellaneous allergy shot SEIZURE [place] Allergy/640267647( [facility]) Hospital Repository 01/22/2018 Miscellaneous cholesterol body aches [place] [facility] Allergy/995078817( medications [facility] SNOMED [facility]) Hospital Repository ENCOUNTERS ENCOUNTERS ADMIT/DISCHARGE ACCOUNT ADMITTING ENCOUNTER LOCATION SOURCE NUMBER CLASS 01/22/2018/ [id number] Ambulatory [facility] 01/14/2018 [id number] Ambulatory [facility] 1 [facility] ing:LAB Repository 01/01/2018/ [id number] Ambulatory BMSBuilding:B [place] 8 9 [place] [facility] Hospital Repository 09/13/2017 [id number] Ambulatory [place] [facility] 6 [facility] ing:DC Repository 09/07/2017/ [id number] Ambulatory BMSBuilding:B [place] 8 2 [place] [facility] Repository 09/03/2017 [id number] Ambulatory Jesusita Grant 8 [facility] ing:LAB Repository 06/06/2017/ [id number] Ambulatory Grant Grant 8 4 [facility] ing:DC Repository 06/01/2017/ [id number] Ambulatory Jesusita Grant 8 6 [facility] ing:EN Repository 06/01/2017 [id number] Ambulatory BMSBuilding:B Jesusita 7 MS.CF.Pending sale to [facility] Repository 05/30/2017/ [id number] Ambulatory BMSBuilding:B Grant 8 8 MS.[facility] Hospital Repository 05/23/2017 [id number] Ambulatory BMSBuilding:B Grant 1 MS.[facility] Hospital Repository 05/14/2017 [id number] Ambulatory BMSBuilding:B Grant 2 MS.[facility] Hospital Repository 05/09/2017/ [id number] Ambulatory BMSBuilding:B Grant 8 7 MS.[facility] Hospital Repository 05/08/2017/ [id number] Emergency Grant Grant 8 0 [facility] ing:ED Repository 05/03/2017/ [id number] Ambulatory BMSBuilding:B Grant 8 3 [facility] Repository 04/26/2017/ [id number] Ambulatory BMSBuilding:B Jesusita 8 1 MS.[facility] Hospital Repository PAYERS PAYERS ENCOUNTER GUARANTOR PAYER SUBSCRIBER SOURCE 01/22/2018 HANANE L Primary HANANE L Grant [id number] Insurance:MEDICARE LUTSCHDOB: [facility] [id number] Number: Repository [id number]: 330 [id number] [phone] () Date:2018-01-01 01/22/2018 Secondary HANANE L Grant Insurance:AARPPolicy LUTSCHDOB: Community Number: [id number] Hospital [id number] Repository Date:7349-03-99ZC [facility] [address]12[address], [place] [address]TH: 01/22/2018 Tertiary NOT GIVENUNK Grant Insurance:SELF PAY [facility] Number: Effective Repository Date:2018-01-15 01/14/2018 HANANE L Primary HANANE L Jesusita [id number] Insurance:MEDICARE LUTSCHDOB: [facility] [place] PART A [id number] [place] Repository [id number]: 330 [id number] [phone] () Date:2018-01-14 01/14/2018 Secondary HANANE L Jesusita Insurance:AARPPolicy LUTSCHDOB: Community Number: [id number] Hospital [id number] Repository Date:2723-03-90[address], [place] [address]JX: 01/14/2018 Tertiary NOT GIVENUNK Jesusita Insurance:SELF PAY [facility] Number: Effective Repository Date:2018-01-14 01/01/2018 HANANE L Primary HANANE L Grant [id number] Insurance:MEDICARE LUTSCHDOB: Community [place] PART A [facility] [id number] [place] Number[place] Repository [id number]: 330 [id number] [phone] () Date:2017-09-07 01/01/2018 Secondary HANANE L Grant Insurance:AARPPolicy LUTSCHDOB: Community Number: [id number] Hospital [id number] Repository Date:5994-10-90[address], [place] [address]RP: 01/01/2018 Tertiary NOT GIVENUNK Grant Insurance:SELF PAY [facility] Number: Effective Repository Date:2017-12-06 09/13/2017 HANANE L Primary HANANE L Jesusita [id number] Insurance:MEDICARE LUTSCHDOB: Community [place] PART A [facility] [id number] Number: Repository [address]Vyc: 330 [id number] [phone] () Date:2017-05-15 09/13/2017 Secondary HANANE L Grant Insurance:AARPPolicy LUTSCHDOB: Community Number: [id number] Hospital [id number] Repository Date:9800-61-87JV [facility] [address]244[address], [place] [address]AH: 09/13/2017 Tertiary NOT GIVENUNK Grant Insurance:SELF PAY [facility] Number: Effective Repository Date:2017-06-12 09/07/2017 HANANE L Primary HANANE L Grant [id number] Insurance:MEDICARE LUTSCHDOB: Community [place] PART A [facility] [id number] Number: Repository [id number]: 330 [id number] [phone] () Date:2017-05-30 09/07/2017 Secondary HANANE L Grant Insurance:AARPPolicy LUTSCHDOB: Community Number: [id number] Hospital [id number] Repository Date:6445-96-25SA [facility] [address], [place] [address]PP: 09/07/2017 Tertiary NOT GIVENUNK Grant Insurance:SELF PAY [facility] Number: Effective Repository Date:2017-08-27 09/03/2017 HANANE L Primary HANANE L Jesusita [id number] Insurance:MEDICARE LUTSCHDOB: Community [place] PART A [facility] [id number] Number: Repository [address]Zkn: 330 [id number] [phone] () Date:2017-09-03 09/03/2017 Secondary HANANE L Grant Insurance:AARPPolicy LUTSCHDOB: Community Number: [id number] Hospital [id number] Repository Date:2755-10-89[address], [place] [address]XH: 09/03/2017 Tertiary NOT GIVENUNK Grant Insurance:SELF PAY [facility] Number: Effective Repository Date:2017-09-03 06/06/2017 HANANE L Primary HANANE L Jesusita [id number] Insurance:MEDICARE LUTSCHDOB: [facility] PART A [facility] [id number] Number: Repository [address]Jfq: 330 [id number] [phone] () Date:2017-05-15 06/06/2017 Secondary HANANE L Grant Insurance:AARPPolicy LUTSCHDOB: Community Number: [id number] Hospital [id number] Repository Date:3904-82-85CT [address]OOJ, [place] [address]GZ: 06/06/2017 Tertiary NOT GIVENUNK Grant Insurance:SELF PAY [facility] Number: Effective Repository Date:2017-05-15 06/01/2017 HAANNE L Primary HANANE L Jesusita [id number] Insurance:MEDICARE LUTSCHDOB: [facility] PART A [facility] [id number] Number: Repository [address]Qvw: 330 [id number] [phone] () Date:2017-05-03 06/01/2017 Secondary HANANE L Jesusita Insurance:AARPPolicy LUTSCHDOB: Community Number: [id number] Hospital [id number] Repository Date:2573-36-79[address]BDJIHA, [place] [address]KQ: 06/01/2017 Tertiary NOT GIVENUNK Grant Insurance:SELF PAY [facility] Number: Effective Repository Date:2017-05-03 06/01/2017 HANANE L Primary HANANE L Jesusita [id number] Insurance:MEDICARE LUTSCHDOB: [facility] [place] PART A [facility] [id number] Number: Repository [address]Qzv: 330 [id number] [phone] (HP) Date:2017-05-03 06/01/2017 Secondary HANANE L Jesusita Insurance:AARPPolicy LUTSCHDOB: Community Number: [id number] [facility] [id number] Repository Date:9868-46-61DH [facility] 713599[place], [place] [address]LP: 06/01/2017 Tertiary NOT GIVENUNK Jesusita Insurance:SELF PAY [facility] Number: Effective Repository Date:2017-06-01 05/30/2017 HANANE L Primary HANANE L Grant [id number] Insurance:MEDICARE LUTSCHDOB: [facility] PART A [facility] [id number] [place] Repository [id number]: 330 [id number] [phone] () Date:2017-05-22 05/30/2017 Secondary HANANE L Jesusita Insurance:AARPPolicy LUTSCHDOB: Community Number: [id number] Hospital [id number] Repository Date:8461-59-51[address], [place] [address]HA: 05/30/2017 Tertiary NOT GIVENUNK Grant Insurance:SELF PAY [facility] Number: Effective Repository Date:2017-05-29 05/23/2017 HANANE L Primary HANANE L Grant [id number] Insurance:MEDICARE LUTSCHDOB: [facility] PART A [facility] [id number] [place] Repository [address]Vks: 330 [id number] [phone] (HP) Date:2017-05-09 05/23/2017 Secondary HANANE L Grant Insurance:AARPPolicy LUTSCHDOB: Community Number: [id number] Hospital [id number] Repository Date:2340-47-61[address]Z[place]USWVL, [place] [address]LG: 05/23/2017 Tertiary NOT GIVENUNK Grant Insurance:SELF PAY [facility] Number: Effective Repository Date:2017-05-09 05/14/2017 HANANE L Primary HANANE L Jesusita [id number] Insurance:MEDICARE LUTSCHDOB: Community [place] PART A [facility] [id number] Number: Repository [address]Ipv: [phone] [id number] [phone] () Date:2017-05-14 05/14/2017 Secondary HANANE L Grant Insurance:AARPPolicy LUTSCHDOB: Community Number: [id number] Hospital [id number] Repository Date:5594-57-53Q[address]ATD[place], [place] [address]YU: 05/14/2017 Tertiary NOT GIVENUNK Grant Insurance:SELF PAY [facility] Number: Effective Repository Date:2017-05-14 05/09/2017 HANANE L Primary HANANE L Grant [id number] Insurance:MEDICARE LUTSCHDOB: Community [place] PART A [facility] [id number] Number: Repository [address]Ofj: 330 [id number] [phone] () Date:2017-04-26 05/09/2017 Secondary HANANE L Jesusita Insurance:AARPPolicy LUTSCHDOB: Community Number: [id number] Hospital [id number] Repository Date:0132-88-01X[address]MLGGJGL, [place] [address]KK: 05/09/2017 Tertiary NOT GIVENUNK Jesusita Insurance:SELF PAY [facility] Number: Effective Repository Date:2017-05-09 05/08/2017 HANANE L Primary HANANE L Grant [id number] Insurance:MEDICARE LUTSCHDOB: Community [place] PART A [facility] [id number] Number: Repository [address]Daw: 330 [id number] [phone] () Date:2017-05-08 05/08/2017 Secondary HANANE L Grant Insurance:AARPPolicy LUTSCHDOB: Community Number: [id number] Hospital [id number] Repository Date:5423-54-77P[address]BHOZSDG, [place] [address]BS: 05/08/2017 Tertiary NOT GIVENUNK Jesusita Insurance:SELF PAY [facility] Number: Effective Repository Date:2017-05-08 05/03/2017 HANANE Primary HANANE Jesusita [id number] Insurance:MEDICARE LUTSCHDOB: Community [place] PART A [facility] [id number] [place] Number[place] Repository [id number]: 330 [id number] [phone] () Date:2017-05-03 05/03/2017 Secondary HANANE Jesusita Insurance:AARPPolicy LUTSCHDOB: Community Number: [id number] Hospital [id number] Repository Date:6176-60-71[address]NSNJWFI, [place] [address]XL: 05/03/2017 Tertiary NOT GIVENUNK Jesusita Insurance:SELF PAY [facility] Number: Effective Repository Date:2017-05-03 04/26/2017 HANANE Primary HANANE Grant [id number] Insurance:MEDICARE LUTSCHDOB: Community [place] PART A [facility] [id number] [place] Number[place] Repository [id number]: 330 [id number] [phone] () Date:2017-04-18 04/26/2017 Secondary HANANE Grant Insurance:AARPPolicy LUTSCHDOB: Community Number: [id number] Hospital [id number] Repository Date:4347-76-63[address], [place] [address]YV: 04/26/2017 Tertiary NOT GIVENUNK Jesusita Insurance:SELF [facility]Y [facility]: Effective Repository Date:2017-04-18
== END ==
PROVIDERS: Family Provider Internal Medicine; PCP Internal Medicine; Referring Provider Internal Medicine; Visit Provider Internal Medicine
DX: E11.9 Type 2 diabetes mellitus without complications (principal); I10 Essential (primary) hypertension
CPT/HCPCS: 36415; 80048; 83036

== ENCOUNTER → 2018-02-07 07:31 | Outpatient (CLI) | payer MEDICARE, OTHER, SELFPAY ==
[2018-01-22 10:32] VITALS: BMI 34.2
[2018-02-07 09:09] LABS: Anion Gap 8 (5-15); BUN 13 mg/dL (7-18); BUN/Creat Ratio 17.7 RATIO (10-20); Calcium,Total 8.9 mg/dL (8.5-10.1); Chloride 104 mmol/L (98-107); Creatinine, Serum 0.74 mg/dL (0.55-1.02); EST Glomerular Filtration Rate 84 mL/min (>60); Est Glom Filt Rate - Afr Amer 102 mL/min (>60); Glucose 136 mg/dL (74-106); Potassium 4.1 mmol/L (3.5-5.1); Sodium Level 140 mmol/L (136-145); T4 Free Direct 1.05 ng/dL (0.76-1.46); Thyroid Stim Hormone (TSH) 2.91 uIU/mL (0.358-3.74)
== END ==
PROVIDERS: Family Provider Internal Medicine; PCP Internal Medicine; Referring Provider Internal Medicine; Visit Provider Internal Medicine
DX: E03.9 Hypothyroidism, unspecified (principal); I10 Essential (primary) hypertension; E87.6 Hypokalemia
CPT/HCPCS: 36415; 80048; 84439; 84443

== ENCOUNTER → 2018-05-20 | Outpatient (CLI) | payer MEDICARE, OTHER, SELFPAY ==
[2018-05-20 09:42] VITALS: BMI 34.2
[2018-05-20 13:02] LABS: Anion Gap 9 (5-15); BUN 14 mg/dL (7-18); BUN/Creat Ratio 16.1 RATIO (10-20); Calcium,Total 8.7 mg/dL (8.5-10.1); Chloride 104 mmol/L (98-107); Creatinine, Serum 0.87 mg/dL (0.55-1.02); EST Glomerular Filtration Rate 69 mL/min (>60); Est Glom Filt Rate - Afr Amer 84 mL/min (>60); Glucose 178 mg/dL (74-106); Magnesium 1.6 mg/dL (1.6-2.6); Potassium 3.6 mmol/L (3.5-5.1); Sodium Level 138 mmol/L (136-145)
[2018-05-20 13:03] LABS: Hemoglobin A1c 7.2 % (4.2-6.3)
== END | disposition home or self-care (01) ==
LOC: BIMLAB 10:16
PROVIDERS: Family Provider Internal Medicine; PCP Internal Medicine; Visit Provider Internal Medicine
DX: I10 Essential (primary) hypertension (principal); E11.9 Type 2 diabetes mellitus without complications; E83.42 Hypomagnesemia
CPT/HCPCS: 36415; 80048; 83036; 83735

== ENCOUNTER → 2018-09-10 09:36 | Outpatient (CLI) | payer MEDICARE, OTHER, SELFPAY ==
[2018-09-10 09:12] VITALS: BMI 34.2
[2018-09-10 12:13] LABS: Absolute Lymphocyte Count 2.11 X10^3/uL (0.83-4.51); Absolute Neutrophil Count 4.7 X10^3/uL (2.0-7.7); Basophil# 0.03 X10^3/uL; Basophil% 0.4 % (0-1); Eosinophil# 0.28 X10^3/uL; Eosinophils% 3.6 % (0-5); Hematocrit 44.7 % (37-47); Hemoglobin 14.6 g/dL (12.0-15.0); Lymphocyte # 2.11 X10^3/ul (4.0); Lymphocyte % 27.3 % (19-41); Mean Corp Hgb Conc 32.7 g/dL (32-36); Mean Platelet Vol. 9.8 fl (6.2-12.0); Monocyte# 0.63 X10^3/uL; Monocyte% 8.2 % (0-10); NRBC Flagged by Analyzer 0 % (0-5); Neutrophil # 4.65 X10^3/uL (2.7-7.7); Neutrophil % 60.1 % (47-70); Platelet Count 310 K/mm3 (150-450); RBC Distribution Width CV 12.1 % (11.6-14.6); RBC Distribution Width SD 40.5 fl (35.1-43.9); Red Blood Count 4.86 M/mm3 (4.2-5.4); White Blood Count 7.7 K/mm3 (4.4-11.0)
[2018-09-10 12:56] LABS: Cholesterol 261 mg/dL (200); High Density Lipoprotein 44 mg/dL; Triglycerides 408 mg/dL
== END ==
PROVIDERS: Family Provider Internal Medicine; PCP Internal Medicine; Visit Provider Internal Medicine
DX: E11.9 Type 2 diabetes mellitus without complications (principal); E78.5 Hyperlipidemia, unspecified
CPT/HCPCS: 36415; 80061; 85025

== ENCOUNTER → 2018-09-18 | Outpatient (CLI) | payer MEDICARE, OTHER, SELFPAY ==
[2018-09-18 09:44] VITALS: BMI 34.2
[2018-09-18 10:35] LABS: Mucous, Urine 0 SEEN /hpf (<or=2+); Red Blood Cells-Urine 0 SEEN /hpf (0-5)
[2018-09-18 12:18] LABS: Color, Urine Yellow (Yellow); Glucose, Dipstick Normal (Normal); Ketone-Dipstick Negative (Negative); Leukocyte Esterase-Dipstick 500 /ul (Negative); Nitrite-Dipstick Negative (Negative); Occult Blood-Urine 10 /ul (Negative); Protein-Dipstick Negative (Negative); Specific Gravity, Urine 1.015 (1.002-1.030); Urine Bilirubin Dipstick Negative (Negative); Urine Clarity Sl. Cloudy (Clear); Urine Urobilinogen Normal (Normal)
[2018-09-18 12:32] LABS: Bacteria 2+ /hpf (None Seen); Squamous Epithelial Cells - UA 5-10 SEEN /hpf (5-10); White Blood Cells 5-10 SEEN /hpf (0-5)
== END | disposition home or self-care (01) ==
LOC: BIMLAB 10:32
PROVIDERS: Family Provider Internal Medicine; PCP Internal Medicine; Visit Provider Nurse Practitioner Family
DX: R34 Anuria and oliguria (principal)
CPT/HCPCS: 81001; 87086; 87088

== ENCOUNTER → 2018-10-11 14:13 | Outpatient (CLI) | payer MEDICARE, OTHER, SELFPAY ==
[2018-10-11 10:27] VITALS: BMI 34.2
--- NOTE | 2018-10-11 14:35 | RAD_ITS ---
STUDY: X-RAY - ABDOMEN/PELVIS REASON FOR EXAM: Female, 68 years old. Constipation. TECHNIQUE: 1 view COMPARISON: None. FINDINGS: Nondistended stomach. Nondistended small bowel. Diffuse moderate increase in colonic bowel gas without distention. Moderate scattered stool without a large stool collection. No stool apparent in the rectosigmoid colon. There is no demonstrated free abdominal air. Negative for gross organomegaly. Vascular calcifications. Normal visualized osseous structures. RAD/Abdomen Single View IMPRESSION: Moderate diffuse increase in colonic bowel gas without distention. Moderate stool. Nondistended stomach and small bowel. Negative for evidence of bowel obstruction or perforation. Negative for gross organomegaly. Electronically Signed: Prerna Yee MD at 17:53 EDT , Service support ,
--- NOTE | 2018-10-11 14:43 | EKG12_ITS ---
Test Reason : HTN Blood Pressure : / mmHG Vent. Rate : 076 BPM Atrial Rate : 076 BPM P-R Int : 156 ms QRS Dur : 126 ms QT Int : 454 ms P-R-T Axes : 030 042 018 degrees QTc Int : 510 ms Normal sinus rhythm Right bundle branch block Possible Inferior infarct , age undetermined Abnormal ECG Confirmed by MARTHA CURRIE, MARV ([id number]), market editor DELPHINE BOWERS ([id number]) on 10/15/2018 11:14:13 AM Referred By: Samuel Rodriguez Confirmed By:MARV THOMAS MD
== END ==
PROVIDERS: Family Provider Internal Medicine; PCP Internal Medicine; Referring Provider Internal Medicine; Visit Provider Internal Medicine
DX: I10 Essential (primary) hypertension (principal); K59.09 Other constipation
CPT/HCPCS: 74018; 93005

== ENCOUNTER → 2018-11-08 11:21 | Outpatient (CLI) | payer MEDICARE, OTHER, SELFPAY ==
[2018-11-08 10:59] VITALS: BMI 34.3
[2018-11-08 12:44] LABS: Anion Gap 8 (5-15); BUN 12 mg/dL (7-18); BUN/Creat Ratio 15.1 RATIO (10-20); Calcium,Total 9.1 mg/dL (8.5-10.1); Chloride 103 mmol/L (98-107); EST Glomerular Filtration Rate 77 mL/min (>60); Est Glom Filt Rate - Afr Amer 93 mL/min (>60); Glucose 118 mg/dL (74-106); Magnesium 1.7 mg/dL (1.6-2.6); Sodium Level 139 mmol/L (136-145)
== END ==
PROVIDERS: Family Provider Internal Medicine; PCP Internal Medicine; Visit Provider Internal Medicine
DX: I10 Essential (primary) hypertension (principal)
CPT/HCPCS: 36415; 80048; 83735

== ENCOUNTER → 2019-07-03 08:36 | Outpatient (CLI) | payer MEDICARE, OTHER, SELFPAY ==
[2018-11-08 10:59] VITALS: BMI 34.3
--- NOTE | 2019-07-03 09:06 | EKG12_ITS ---
Test Reason : PREOP Blood Pressure : / mmHG Vent. Rate : 058 BPM Atrial Rate : 058 BPM P-R Int : 158 ms QRS Dur : 114 ms QT Int : 496 ms P-R-T Axes : 026 020 016 degrees QTc Int : 486 ms Sinus bradycardia Nonspecific T wave abnormality Prolonged QT Abnormal ECG Confirmed by SYBIL CURRIE, ANTHONY ([id number]), senior technical editor FREDERICK QUINTERO ([id number]) on 07/08/2019 2:57:57 PM Referred By: Deanne Perera Confirmed By:ANTHONY DEVINE MD
[2019-07-03 09:19] LABS: Absolute Lymphocyte Count 1.95 X10^3/uL (0.83-4.51); Absolute Neutrophil Count 5.4 X10^3/uL (2.0-7.7); Basophil# 0.05 X10^3/uL; Basophil% 0.6 % (0-1); Eosinophil# 0.22 X10^3/uL; Eosinophils% 2.6 % (0-5); Hematocrit 41.6 % (37-47); Hemoglobin 13.4 g/dL (12.0-15.0); Lymphocyte # 1.95 X10^3/ul (4.0); Lymphocyte % 23.2 % (19-41); Mean Corp Hgb Conc 32.2 g/dL (32-36); Mean Corpuscular Hgb 29.8 pg (27.0-32.0); Mean Corpuscular Volume 92.7 fL (81-99); Mean Platelet Vol. 9.1 fl (6.2-12.0); Monocyte# 0.77 X10^3/uL; Monocyte% 9.2 % (0-10); NRBC Flagged by Analyzer 0 % (0-5); Neutrophil # 5.38 X10^3/uL (2.7-7.7); Neutrophil % 63.9 % (47-70); Platelet Count 315 K/mm3 (150-450); RBC Distribution Width CV 12.8 % (11.6-14.6); RBC Distribution Width SD 43.6 fl (35.1-43.9); Red Blood Count 4.49 M/mm3 (4.2-5.4); White Blood Count 8.4 K/mm3 (4.4-11.0)
[2019-07-03 09:48] LABS: Anion Gap 7 (5-15); BUN 13 mg/dL (7-18); BUN/Creat Ratio 15.6 RATIO (10-20); Calcium,Total 9.3 mg/dL (8.5-10.1); Chloride 103 mmol/L (98-107); Creatinine, Serum 0.84 mg/dL (0.55-1.02); EST Glomerular Filtration Rate 72 mL/min (>60); Est Glom Filt Rate - Afr Amer 87 mL/min (>60); Glucose 124 mg/dL (74-106); Potassium 3.8 mmol/L (3.5-5.1); Sodium Level 137 mmol/L (136-145)
[2019-07-03 10:22] LABS: Hemoglobin A1c 6.3 % (3.8-5.6)
== END ==
PROVIDERS: PCP Internal Medicine; Referring Provider Registered Nurse; Visit Provider Registered Nurse
DX: Z01.818 Encounter for other preprocedural examination (principal); Z01.810 Encounter for preprocedural cardiovascular examination
CPT/HCPCS: 36415; 80048; 83036; 85025; 93005

== ENCOUNTER → 2019-07-06 09:42 | Outpatient (CLI) | payer MEDICARE, OTHER, SELFPAY ==
[2018-11-08 10:59] VITALS: BMI 34.3
== END ==
PROVIDERS: PCP Internal Medicine; Referring Provider Physician Assistant; Visit Provider Physician Assistant
DX: Z11.59 Encounter for screening for other viral diseases (principal)
CPT/HCPCS: 87635; G2023; U0004

== ENCOUNTER → 2020-01-30 12:05 | Outpatient (CLI) | payer MEDICARE, OTHER, SELFPAY ==
[2020-01-30 11:22] VITALS: BMI 35.7
[2020-01-30 12:08] LABS: Bacteria 0 SEEN /hpf (None Seen); Mucous, Urine 0 SEEN /hpf (<or=2+)
[2020-01-30 16:03] LABS: Absolute Lymphocyte Count 1.56 X10^3/uL (0.83-4.51); Absolute Neutrophil Count 10.7 X10^3/uL (2.0-7.7); Basophil# 0.04 X10^3/uL; Basophil% 0.3 % (0-1); Eosinophil# 0.13 X10^3/uL; Hematocrit 44.4 % (37-47); Hemoglobin 13.7 g/dL (12.0-15.0); Lymphocyte # 1.56 X10^3/ul (4.0); Lymphocyte % 11.6 % (19-41); Mean Corp Hgb Conc 30.9 g/dL (32-36); Mean Corpuscular Hgb 29.3 pg (27.0-32.0); Mean Corpuscular Volume 95.1 fL (81-99); Mean Platelet Vol. 10.1 fl (6.2-12.0); Monocyte# 1.02 X10^3/uL; Monocyte% 7.6 % (0-10); NRBC Flagged by Analyzer 0 % (0-5); Neutrophil # 10.65 X10^3/uL (2.7-7.7); Neutrophil % 79.1 % (47-70); Platelet Count 359 K/mm3 (150-450); RBC Distribution Width SD 45.6 fl (35.1-43.9); Red Blood Count 4.67 M/mm3 (4.2-5.4); White Blood Count 13.5 K/mm3 (4.4-11.0)
[2020-01-30 16:12] LABS: Color, Urine Yellow (Yellow); Glucose, Dipstick Normal (Normal); Ketone-Dipstick Negative (Negative); Leukocyte Esterase-Dipstick 100 /ul (Negative); Nitrite-Dipstick Negative (Negative); Occult Blood-Urine 250 /ul (Negative); Protein-Dipstick 30 mg/dl (Negative); Urine Bilirubin Dipstick Negative (Negative); Urine Clarity Sl. Cloudy (Clear); Urine Urobilinogen Normal (Normal)
[2020-01-30 16:31] LABS: AST(SGOT) 20 U/L (15-37); Alanine Aminotransfer ALT/SGPT 39 U/L (13-56); Albumin, Serum 3.8 g/dL (3.2-5.0); Alkaline Phosphatase 67 U/L (45-117); Anion Gap 7 (5-15); BUN 10 mg/dL (7-18); BUN/Creat Ratio 11.5 RATIO (10-20); Calcium,Total 8.8 mg/dL (8.5-10.1); Chloride 102 mmol/L (98-107); Cholesterol 267 mg/dL (200); Creatinine, Serum 0.87 mg/dL (0.55-1.02); EST Glomerular Filtration Rate 69 mL/min (>60); Est Glom Filt Rate - Afr Amer 83 mL/min (>60); Globulin 3.8 g/dL (2.2-4.2); Glucose 123 mg/dL (74-106); High Density Lipoprotein 42 mg/dL; Protein, Total 7.6 g/dL (6.4-8.2); Sodium Level 136 mmol/L (136-145); Thyroid Stim Hormone (TSH) 1.99 uIU/mL (0.358-3.74); Triglycerides 412 mg/dL
[2020-01-30 16:46] LABS: Hemoglobin A1c 6.4 % (3.8-5.6)
[2020-01-30 17:06] LABS: Red Blood Cells-Urine 25-50 SEEN /hpf (0-5); White Blood Cells 25-50 SEEN /hpf (0-5)
[2020-01-30 17:07] LABS: Amorphous Sediment 1+ PHOS; Squamous Epithelial Cells - UA 0-5 SEEN /hpf (5-10)
== END ==
PROVIDERS: PCP Internal Medicine; Referring Provider Internal Medicine; Visit Provider Internal Medicine
DX: R31.9 Hematuria, unspecified (principal); E11.9 Type 2 diabetes mellitus without complications; E03.9 Hypothyroidism, unspecified
CPT/HCPCS: 36415; 80053; 80061; 81001; 83036; 84443; 85025; 87086; 87088; 87186

== ENCOUNTER → 2020-03-17 10:56 | Outpatient (CLI) | payer MEDICARE, OTHER, SELFPAY ==
[2020-01-30 11:22] VITALS: BMI 35.7
--- NOTE | 2020-03-17 10:59 | BI_ITS ---
MAMMOGRAPHY - BILATERAL SCREENING REASON FOR EXAM: Female, 69 years old. Routine annual screening examination. PERTINENT HISTORY: Mother with breast cancer. TECHNIQUE: Digital bilateral breast cosme (3D mammographic acquisition) in the CC and MLO projections. 2-D mediolateral oblique (MLO) and craniocaudad (CC) views of both breasts were obtained. CAD: Full Field Digital Mammography with Computer Added Detection was performed. COMPARISON: No comparison mammograms available at this time. If any prior films become available, an addendum to this report can be generated. FINDINGS: Breast Composition: There are scattered areas of fibroglandular density. There are no dominant masses or suspicious calcifications. Small benign-appearing bilateral axillary lymph nodes. No other significant abnormalities are identified. BI/SCRN MAMM (CAD)W/COSME BILAT IMPRESSION: Negative screening mammogram. Yearly followup mammogram recommended. (A) ASSESSMENT CATEGORY: BIRADS Category 2: Benign. A letter regarding these results will be sent to the patient by the facility within 30 days. Approximately 10% of breast cancers are not detected by mammography. A normal mammogram should not delay biopsy of a clinically suspicious abnormality. [id number] Electronically Signed: Jamal Harris MD at 12:28 EST , Service support ,
--- NOTE | 2020-03-17 11:02 | BD_ITS ---
STUDY: DUAL ENERGY X-RAY ABSORPTIOMETRY / DXA REASON FOR EXAM: Female, 69 years old. HOURLY SIGN LANGUAGE INTERPRETER-SURGICAL EARLY AT 35 YRS OLD -- TYPE 2 DIABETIC- TAKES MEDS -- HX OF STEROID MED USE IN PAST- 15-20 YRS AGO -- TAKES THYROID MEDICATION -- TAKES DIURETIC -- TAKES MULTIVITAMIN -- DOES LITTLE EXERCISE -- HX OF L4-5 SURGERY -- ISABELL OF 0.75 INCH TECHNIQUE: Bone Mineral Density (BMD) measurements of lumbar spine and bilateral hips were obtained. COMPARISON: Comparison is made with prior study dated 03/22/1999. FINDINGS: Lumbar Spine (L1-L4): g/cm2 (1.155) / T-score (-0.2) / Z-score (1.4) Findings are suggestive of normal bone density with a low fracture risk. Left Femur Total: g/cm2 (1.029) / T-score (0.2) / Z-score (1.6) Left Femoral Neck: g/cm2 (0.914) / T-score (-0.9) / Z-score (0.7) Right Femur Total: g/cm2 (0.932) / T-score (-0.6) / Z-score (0.8) Right Femoral Neck: g/cm2 (0.794) / T-score (-1.8) / Z-score (0.1) The T-Scores on the most recent prior examination were: Lumbar Spine (L1-L4): There has been improvement of bone density since the previous examination. Left Femur Total: which represents a worsening of 16.1%. BD/Dexa Bone Density Study IMPRESSION: The patient is considered osteopenic as outlined below according to World Jesus Organization (WHO) criteria with a moderate fracture risk. There has been worsening of bone density since the previous examination. Reference Information: The T-score is the number of standard deviations above or below the standard which is normal for young adults at their peak bone mineral density. The World Health Organization (WHO) interprets the T-scores as follows: Above -1 Normal bone density Between -1 and -2.5 Osteopenia Equal to / or below -2.5 Osteoporosis As a practical clinical guideline, osteopenia may be graded as follows: Mild -1 through -1.5 Moderate -1.6 through -2.0 Severe -2.1 through -2.4 The Z-score is the number of standard deviations above or below age-matched controls. A Z-score of less than -1.5 would be considered abnormal. References: 1. NIH Osteoporosis and Related Bone Diseases www osteo.org 2. International Society for Clinical Densitometry www iscd.org 3. National Osteoporosis Foundation www nof.org Electronically Signed: Jamal Harris MD at 13:24 EST , Service support ,
== END ==
PROVIDERS: PCP Internal Medicine; Referring Provider Internal Medicine; Visit Provider Internal Medicine
DX: Z12.31 Encounter for screening mammogram for malignant neoplasm of breast (principal); Z78.0 Asymptomatic menopausal state
CPT/HCPCS: 77063; 77067; 77080

== ENCOUNTER → 2020-06-02 10:36 | Outpatient (CLI) | payer MEDICARE, OTHER, SELFPAY ==
[2020-06-02 10:12] VITALS: BMI 36.5
[2020-06-02 12:38] LABS: Anion Gap 7 (5-15); BUN 18 mg/dL (7-18); BUN/Creat Ratio 21.7 RATIO (10-20); Calcium,Total 9.2 mg/dL (8.5-10.1); Chloride 104 mmol/L (98-107); Cholesterol 277 mg/dL (200); Creatinine, Serum 0.83 mg/dL (0.55-1.02); EST Glomerular Filtration Rate 72 mL/min (>60); Est Glom Filt Rate - Afr Amer 88 mL/min (>60); Glucose 146 mg/dL (74-106); High Density Lipoprotein 48 mg/dL; Potassium 4.3 mmol/L (3.5-5.1); Sodium Level 138 mmol/L (136-145); Triglycerides 347 mg/dL; Very Low Density Lipoprotein 69 mg/dL (5-40)
== END ==
PROVIDERS: PCP Internal Medicine; Referring Provider Internal Medicine; Visit Provider Internal Medicine
DX: E11.9 Type 2 diabetes mellitus without complications (principal); E78.5 Hyperlipidemia, unspecified
CPT/HCPCS: 36415; 80048; 80061

== ENCOUNTER → 2020-09-01 10:35 | Outpatient (CLI) | payer MEDICARE, OTHER, SELFPAY ==
[2020-09-01 10:07] VITALS: BMI 36.5
[2020-09-01 12:43] LABS: Thyroid Stim Hormone (TSH) 2.88 uIU/mL (0.358-3.74)
== END ==
PROVIDERS: PCP Internal Medicine; Referring Provider Internal Medicine; Visit Provider Internal Medicine
DX: E03.9 Hypothyroidism, unspecified (principal)
CPT/HCPCS: 36415; 84443

== ENCOUNTER → 2020-09-09 20:05 | Outpatient (CLI) | payer MEDICARE, OTHER, SELFPAY ==
[2020-09-01 10:07] VITALS: BMI 36.5
[2020-09-07 13:41] VITALS: BMI 36.5
== END ==
PROVIDERS: PCP Internal Medicine; Referring Provider Internal Medicine; Visit Provider Internal Medicine
DX: G47.419 Narcolepsy without cataplexy (principal)
CPT/HCPCS: 95810

== ENCOUNTER → 2020-10-14 20:09 | Outpatient (CLI) | payer MEDICARE, OTHER, SELFPAY ==
[2020-09-07 13:41] VITALS: BMI 36.5
== END ==
PROVIDERS: PCP Internal Medicine; Referring Provider Internal Medicine; Visit Provider Internal Medicine
DX: G47.33 Obstructive sleep apnea (adult) (pediatric) (principal); G47.10 Hypersomnia, unspecified; G47.419 Narcolepsy without cataplexy
CPT/HCPCS: 95811

== ENCOUNTER 2021-03-08 15:11 | Outpatient (CLI) | payer MEDICARE, OTHER, SELFPAY ==
[2021-03-08 16:42] LABS: Absolute Lymphocyte Count 1.82 X10^3/uL (0.83-4.51); Basophil# 0.03 X10^3/uL; Basophil% 0.3 % (0-1); Eosinophils% 2.3 % (0-5); Hematocrit 41.8 % (37-47); Hemoglobin 13.4 g/dL (12.0-15.0); Lymphocyte # 1.82 X10^3/ul (0.83-4.51); Lymphocyte % 20.7 % (19-41); Mean Corp Hgb Conc 32.1 g/dL (32-36); Mean Corpuscular Hgb 28.8 pg (27.0-32.0); Mean Corpuscular Volume 89.9 fL (81-99); Mean Platelet Vol. 9.3 fl (6.2-12.0); Monocyte# 0.58 X10^3/uL; Monocyte% 6.6 % (0-10); NRBC Flagged by Analyzer 0 % (0-5); Neutrophil # 6.03 X10^3/uL (2.7-7.7); Neutrophil % 68.6 % (47-70); Platelet Count 407 K/mm3 (150-450); RBC Distribution Width CV 12.9 % (11.6-14.6); RBC Distribution Width SD 42.4 fl (35.1-43.9); Red Blood Count 4.65 M/mm3 (4.2-5.4); White Blood Count 8.8 K/mm3 (4.4-11.0)
[2021-03-08 16:57] LABS: ALB/GLOB Ratio 0.8 RATIO (0.9-2.4); AST(SGOT) 17 U/L (15-37); Alanine Aminotransfer ALT/SGPT 26 U/L (13-56); Albumin, Serum 3.5 g/dL (3.2-5.0); Alkaline Phosphatase 73 U/L (45-117); Anion Gap 9 (5-15); BUN 14 mg/dL (7-18); BUN/Creat Ratio 17.8 RATIO (10-20); Chloride 103 mmol/L (98-107); Cholesterol 230 mg/dL (200); Creatinine, Serum 0.79 mg/dL (0.55-1.02); EST Glomerular Filtration Rate 77 mL/min (>60); Est Glom Filt Rate - Afr Amer 93 mL/min (>60); Globulin 4.2 g/dL (2.2-4.2); Glucose 127 mg/dL (74-106); High Density Lipoprotein 35 mg/dL; Potassium 3.6 mmol/L (3.5-5.1); Protein, Total 7.7 g/dL (6.4-8.2); Sodium Level 136 mmol/L (136-145); Triglycerides 378 mg/dL; Very Low Density Lipoprotein 76 mg/dL (5-40)
== END 2021-03-08 23:59 | disposition short-term general hospital (02) ==
LOC: BIMLAB 15:12
PROVIDERS: PCP Internal Medicine; Visit Provider Internal Medicine
DX: E11.69 Type 2 diabetes mellitus with other specified complication (principal); E78.5 Hyperlipidemia, unspecified; E03.9 Hypothyroidism, unspecified; I10 Essential (primary) hypertension
CPT/HCPCS: 36415; 80053; 80061; 85025

== ENCOUNTER → 2021-10-11 | Outpatient (CLI) | payer MEDICARE, OTHER, SELFPAY ==
[2021-10-11 12:59] LABS: ALB/GLOB Ratio 0.8 RATIO (0.9-2.4); AST(SGOT) 16 U/L (15-37); Alanine Aminotransfer ALT/SGPT 24 U/L (13-56); Albumin, Serum 3.4 g/dL (3.2-5.0); Alkaline Phosphatase 58 U/L (45-117); Anion Gap 9 (5-15); BUN 15 mg/dL (7-18); BUN/Creat Ratio 16.7 RATIO (10-20); Calcium,Total 9.1 mg/dL (8.5-10.1); Chloride 104 mmol/L (98-107); Cholesterol 228 mg/dL (200); EST Glomerular Filtration Rate 66 mL/min (>60); Est Glom Filt Rate - Afr Amer 80 mL/min (>60); Glucose 130 mg/dL (74-106); High Density Lipoprotein 45 mg/dL; Potassium 3.9 mmol/L (3.5-5.1); Protein, Total 7.4 g/dL (6.4-8.2); Sodium Level 139 mmol/L (136-145); Thyroid Stim Hormone (TSH) 3.37 uIU/mL (0.358-3.74); Triglycerides 204 mg/dL; Very Low Density Lipoprotein 41 mg/dL (5-40)
== END | disposition home or self-care (01) ==
LOC: BIMLAB 08:40
PROVIDERS: PCP Internal Medicine; Visit Provider Internal Medicine
DX: I10 Essential (primary) hypertension (principal); E78.5 Hyperlipidemia, unspecified; E03.9 Hypothyroidism, unspecified
CPT/HCPCS: 36415; 80053; 80061; 84443

== ENCOUNTER → 2022-01-11 | Outpatient (CLI) | payer MEDICARE, OTHER, SELFPAY ==
[2022-01-11 12:26] LABS: Absolute Lymphocyte Count 1.32 X10^3/uL (0.83-4.51); Absolute Neutrophil Count 4.3 X10^3/uL (2.0-7.7); Basophil# 0.02 X10^3/uL; Basophil% 0.3 % (0-1); Eosinophil# 0.17 X10^3/uL; Eosinophils% 2.7 % (0-5); Hemoglobin 13.2 g/dL (12.0-15.0); Lymphocyte # 1.32 X10^3/ul (0.83-4.51); Lymphocyte % 20.8 % (19-41); Mean Corp Hgb Conc 32.2 g/dL (32-36); Mean Corpuscular Hgb 30.6 pg (27.0-32.0); Mean Corpuscular Volume 95.1 fL (81-99); Mean Platelet Vol. 9.8 fl (6.2-12.0); Monocyte# 0.54 X10^3/uL; Monocyte% 8.5 % (0-10); NRBC Flagged by Analyzer 0 % (0-5); Neutrophil # 4.28 X10^3/uL (2.7-7.7); Neutrophil % 67.4 % (47-70); Platelet Count 339 K/mm3 (150-450); RBC Distribution Width CV 13.5 % (11.6-14.6); RBC Distribution Width SD 47.9 fl (35.1-43.9); Red Blood Count 4.31 M/mm3 (4.2-5.4); White Blood Count 6.4 K/mm3 (4.4-11.0)
[2022-01-11 12:50] LABS: Anion Gap 8 (5-15); BUN 16 mg/dL (7-18); BUN/Creat Ratio 16.8 RATIO (10-20); Calcium,Total 9.3 mg/dL (8.5-10.1); Chloride 103 mmol/L (98-107); Creatinine, Serum 0.95 mg/dL (0.55-1.02); EST Glomerular Filtration Rate 62 mL/min (>60); Est Glom Filt Rate - Afr Amer 75 mL/min (>60); Glucose 128 mg/dL (74-106); Sodium Level 138 mmol/L (136-145); Thyroid Stim Hormone (TSH) 3.25 uIU/mL (0.358-3.74)
== END | disposition home or self-care (01) ==
LOC: BIMLAB 09:49
PROVIDERS: PCP Internal Medicine; Referring Provider Internal Medicine; Visit Provider Internal Medicine
DX: I10 Essential (primary) hypertension (principal); E11.9 Type 2 diabetes mellitus without complications; K59.09 Other constipation
CPT/HCPCS: 36415; 80048; 84443; 85025

== ENCOUNTER → 2022-05-18 | Outpatient (CLI) | payer MEDICARE, OTHER, SELFPAY ==
--- NOTE | 2022-05-18 10:59 | BI_ITS ---
MAMMOGRAPHY - BILATERAL SCREENING REASON FOR EXAM: Female, 72 years old. Routine annual screening examination. PERTINENT HISTORY: Mother with breast cancer. Grandmother with breast cancer. Aunt with breast cancer. TECHNIQUE: Digital bilateral breast cosme (3D mammographic acquisition) in the CC and MLO projections. 2-D mediolateral oblique (MLO) and craniocaudad (CC) views of both breasts were obtained. CAD: Full Field Digital Mammography with Computer Added Detection was performed. COMPARISON: Comparison is made with prior study of March 17, 2020. FINDINGS: Breast Composition: There are scattered areas of fibroglandular density. There are no dominant masses or suspicious calcifications. Stable benign-appearing bilateral axillary lymph nodes. No other significant abnormalities are identified. There has been no significant change since the prior study. BI/SCRN MAMM (CAD)W/COSME BILAT IMPRESSION: Stable bilateral screening mammogram. Yearly follow-up mammogram recommended. (A) ASSESSMENT CATEGORY: BIRADS Category 2: Benign. A letter regarding these results will be sent to the patient by the facility within 30 days. Approximately 10% of breast cancers are not detected by mammography. A normal mammogram should not delay biopsy of a clinically suspicious abnormality. [id number] Electronically Signed: Jamal Harris MD at 12:51 EDT ,
== END | disposition home or self-care (01) ==
LOC: OPBI 10:56
PROVIDERS: PCP Internal Medicine; Visit Provider Internal Medicine
DX: Z12.31 Encounter for screening mammogram for malignant neoplasm of breast (principal); Z80.3 Family history of malignant neoplasm of breast
CPT/HCPCS: 77063; 77067

== ENCOUNTER → 2022-08-14 | Outpatient (CLI) | payer MEDICARE, OTHER, SELFPAY ==
[2022-08-14 12:46] LABS: Cholesterol 238 mg/dL (200); High Density Lipoprotein 45 mg/dL; Triglycerides 249 mg/dL; Very Low Density Lipoprotein 50 mg/dL (5-40)
[2022-08-14 13:29] LABS: Vitamin D,25 Hydroxy 32.4 ng/mL
== END | disposition home or self-care (01) ==
LOC: BIMLAB 08:52
PROVIDERS: PCP Internal Medicine; Referring Provider Internal Medicine; Visit Provider Internal Medicine
DX: M85.80 Other specified disorders of bone density and structure, unspecified site (principal); E78.5 Hyperlipidemia, unspecified
CPT/HCPCS: 36415; 80061; 82306

== ENCOUNTER → 2022-11-15 | Outpatient (CLI) | payer MEDICARE, OTHER, SELFPAY ==
[2022-11-15 16:38] LABS: Absolute Neutrophil Count 5.6 X10^3/uL (2.0-7.7); Basophil# 0.03 X10^3/uL; Basophil% 0.4 % (0-1); Eosinophil# 0.29 X10^3/uL; Eosinophils% 3.5 % (0-5); Hematocrit 40.6 % (37-47); Hemoglobin 12.8 g/dL (12.0-15.0); Lymphocyte % 18.4 % (19-41); Mean Corp Hgb Conc 31.5 g/dL (32-36); Mean Corpuscular Hgb 29.6 pg (27.0-32.0); Mean Platelet Vol. 9.7 fl (6.2-12.0); Monocyte# 0.69 X10^3/uL; Monocyte% 8.4 % (0-10); NRBC Flagged by Analyzer 0 % (0-5); Neutrophil # 5.63 X10^3/uL (2.7-7.7); Neutrophil % 68.9 % (47-70); Platelet Count 365 K/mm3 (150-450); RBC Distribution Width CV 13.9 % (11.6-14.6); RBC Distribution Width SD 47.8 fl (35.1-43.9); Red Blood Count 4.32 M/mm3 (4.2-5.4); White Blood Count 8.2 K/mm3 (4.4-11.0)
[2022-11-15 16:50] LABS: Anion Gap 5 (5-15); BUN 18 mg/dL (7-18); BUN/Creat Ratio 18.5 RATIO (10-20); Calcium,Total 9.3 mg/dL (8.5-10.1); Chloride 106 mmol/L (98-107); Creatinine, Serum 0.97 mg/dL (0.55-1.02); EST Glomerular Filtration Rate 60 mL/min (>60); Est Glom Filt Rate - Afr Amer 72 mL/min (>60); Glucose 114 mg/dL (74-106); Potassium 3.7 mmol/L (3.5-5.1); Sodium Level 138 mmol/L (136-145)
[2022-11-15 21:56] LABS: Hemoglobin A1c 6.4 % (3.8-5.6)
== END | disposition home or self-care (01) ==
LOC: BIMLAB 15:46
PROVIDERS: PCP Internal Medicine; Referring Provider Internal Medicine; Visit Provider Internal Medicine
DX: E11.69 Type 2 diabetes mellitus with other specified complication (principal); K59.09 Other constipation
CPT/HCPCS: 36415; 80048; 83036; 85025

== ENCOUNTER → 2023-01-17 | Outpatient (CLI) | payer MEDICARE, OTHER, SELFPAY ==
[2023-01-17 12:57] LABS: Vitamin D,25 Hydroxy 33.2 ng/mL
[2023-01-17 13:01] LABS: Thyroid Stim Hormone (TSH) 4.37 uIU/mL (0.358-3.74)
== END | disposition home or self-care (01) ==
LOC: BIMLAB 08:45
PROVIDERS: PCP Internal Medicine; Referring Provider Physician Assistant; Visit Provider Physician Assistant
DX: E03.9 Hypothyroidism, unspecified (principal); M85.80 Other specified disorders of bone density and structure, unspecified site
CPT/HCPCS: 36415; 82306; 84439; 84443

== ENCOUNTER → 2023-04-18 | Outpatient (CLI) | payer MEDICARE, OTHER, SELFPAY ==
--- OUTSIDE RECORDS SUMMARY | 2023-04-18 09:23 | XMS RPT_ITS | CCD ---
Author Name Unknown Address [address] [place] [address] Organization [facility] Care Team Providers Care Security Officer Name Role Phone SUPPAN, RAFAEL Unavailable Unavailable JOLLIFF, GRECIA Unavailable Unavailable SUPPAN, RAFAEL Unavailable Unavailable JOLLIFF, GRECIA Unavailable Unavailable Results Test Name Value Interpretation Reference Range Facil ity Encounters Encounter Date Encounter Type Care Provider Facility Start: 12-22-2016 End: 12-22-2016 Ambulatory RAFAEL SUPPAN Facility:B Start: 12-14-2016 End: 12-15-2016 Ambulatory RAFAEL SUPPAN Facility:[facility] Payers Date Payer Category Payer Medicare [id number] Summary Purpose Family History No Family History Records Found Advance Directives No Advanced Directives Records Found Additional Source Comments INFORMATION SOURCE (unrecogn ized section and content) FOR RECORDS PERTAINING TO PATIENTS WHO ARE OR HAVE BEEN ENROLLED IN A CHEMICAL DEPENDENCY/SUBSTANCEABUSE PROGRAM, SOME INFORMATION MAY BE OMITTED. This clinical summary was aggregated from multiple sources. Caution should be exercised in using it in the provision of clinical care. This summary normalizes information from multiple sources, and as a consequence, information in this document may materially change the coding, format and clinical context of patient data. In addition, data may be omitted in some cases. CLINICAL DECISIONS SHOULD BE BASED ON THE PRIMARY CLINICAL RECORDS. [facility]. provides no warranty or guarantee of the accuracy or completeness of information in this document.
[2023-04-18 12:29] LABS: Absolute Lymphocyte Count 1.17 X10^3/uL (0.83-4.51); Absolute Neutrophil Count 4.5 X10^3/uL (2.0-7.7); Basophil# 0.04 X10^3/uL; Basophil% 0.6 % (0-1); Eosinophil# 0.22 X10^3/uL; Eosinophils% 3.4 % (0-5); Hematocrit 41.6 % (37-47); Hemoglobin 12.9 g/dL (12.0-15.0); Lymphocyte # 1.17 X10^3/ul (0.83-4.51); Lymphocyte % 17.8 % (19-41); Mean Corpuscular Hgb 29.4 pg (27.0-32.0); Mean Corpuscular Volume 94.8 fL (81-99); Mean Platelet Vol. 10.2 fl (6.2-12.0); Monocyte% 9.1 % (0-10); NRBC Flagged by Analyzer 0 % (0-5); Neutrophil # 4.51 X10^3/uL (2.7-7.7); Neutrophil % 68.8 % (47-70); Platelet Count 352 K/mm3 (150-450); RBC Distribution Width CV 14.1 % (11.6-14.6); RBC Distribution Width SD 48.9 fl (35.1-43.9); Red Blood Count 4.39 M/mm3 (4.2-5.4); White Blood Count 6.6 K/mm3 (4.4-11.0)
[2023-04-18 13:30] LABS: AST(SGOT) 17 U/L (15-37); Alanine Aminotransfer ALT/SGPT 21 U/L (13-56); Albumin, Serum 3.8 g/dL (3.2-5.0); Alkaline Phosphatase 53 U/L (45-117); Anion Gap 7 (5-15); BUN 17 mg/dL (7-18); BUN/Creat Ratio 14.7 RATIO (10-20); Calcium,Total 9.4 mg/dL (8.5-10.1); Chloride 107 mmol/L (98-107); Creatinine, Serum 1.16 mg/dL (0.55-1.02); EST Glomerular Filtration Rate 49 mL/min (>60); Est Glom Filt Rate - Afr Amer 59 mL/min (>60); Globulin 3.9 g/dL (2.2-4.2); Glucose 127 mg/dL (74-106); Potassium 4.4 mmol/L (3.5-5.1); Protein, Total 7.7 g/dL (6.4-8.2); Sodium Level 139 mmol/L (136-145); Thyroid Stim Hormone (TSH) 3.79 uIU/mL (0.358-3.74)
== END | disposition home or self-care (01) ==
LOC: BIMLAB 08:58
PROVIDERS: PCP Internal Medicine; Visit Provider Internal Medicine
DX: E11.9 Type 2 diabetes mellitus without complications (principal); E03.9 Hypothyroidism, unspecified; K59.09 Other constipation
CPT/HCPCS: 36415; 80053; 84443; 85025

== ENCOUNTER → 2023-07-11 | Outpatient (CLI) | payer MEDICARE, OTHER, SELFPAY ==
--- NOTE | 2023-07-11 07:42 | BI_ITS ---
MAMMOGRAPHY - BILATERAL SCREENING REASON FOR EXAM: Female, 73 years old. Routine annual screening examination. PERTINENT HISTORY: Mother with breast cancer. Grandmother with breast cancer. Aunt with breast cancer. TECHNIQUE: Digital bilateral breast cosme (3D mammographic acquisition) in the CC and MLO projections. 2-D mediolateral oblique (MLO) and craniocaudad (CC) views of both breasts were obtained. CAD: Full Field Digital Mammography with Computer Added Detection was performed. COMPARISON: Comparison is made with prior study dated May 18, 2022 and March 17, 2020. FINDINGS: Breast Composition: There are scattered areas of fibroglandular density. There are no dominant masses or suspicious calcifications. Stable small benign appearing bilateral axillary lymph nodes. No other significant abnormalities are identified. There has been no significant change since the prior study. BI/SCRN MAMM (CAD)W/COSME BILAT IMPRESSION: Stable bilateral screening mammogram. Yearly follow-up mammogram recommended. (A) ASSESSMENT CATEGORY: BIRADS Category 2: Benign. A letter regarding these results will be sent to the patient by the facility within 30 days. Approximately 10% of breast cancers are not detected by mammography. A normal mammogram should not delay biopsy of a clinically suspicious abnormality. [id number] Electronically Signed: Jamal Harris MD at 9:00 EDT ,
== END | disposition home or self-care (01) ==
LOC: OPBI 07:42
PROVIDERS: PCP Internal Medicine; Referring Provider Internal Medicine; Visit Provider Internal Medicine
DX: Z12.31 Encounter for screening mammogram for malignant neoplasm of breast (principal); Z80.3 Family history of malignant neoplasm of breast
CPT/HCPCS: 77063; 77067

== ENCOUNTER → 2023-08-02 | Outpatient (CLI) | payer MEDICARE, OTHER, SELFPAY ==
[2023-08-02 09:23] LABS: Mucous, Urine 0 SEEN /hpf (<or=2+)
[2023-08-02 12:14] LABS: Color, Urine Yellow (Yellow); Glucose, Dipstick Normal (Normal); Ketone-Dipstick Negative (Negative); Leukocyte Esterase-Dipstick 500 /ul (Negative); Nitrite-Dipstick Negative (Negative); Occult Blood-Urine 10 /ul (Negative); Protein-Dipstick 30 mg/dl (Negative); Specific Gravity, Urine 1.015 (1.002-1.030); Urine Bilirubin Dipstick Negative (Negative); Urine Clarity Cloudy (Clear); Urine Urobilinogen Normal (Normal); Urine pH 6.5 (5.0 - 8.0)
[2023-08-02 12:26] LABS: Bacteria 4+ /hpf (None Seen); Red Blood Cells-Urine 0-5 SEEN /hpf (0-5); White Blood Cells 10-25 SEEN /hpf (0-5)
[2023-08-02 12:27] LABS: Squamous Epithelial Cells - UA 10-25 SEEN /hpf (5-10)
[2023-08-02 12:54] LABS: Cholesterol 219 mg/dL (200); High Density Lipoprotein 47 mg/dL; Thyroid Stim Hormone (TSH) 2.87 uIU/mL (0.358-3.74); Triglycerides 170 mg/dL; Very Low Density Lipoprotein 34 mg/dL (5-40)
== END | disposition home or self-care (01) ==
LOC: BIMLAB 09:20
PROVIDERS: PCP Internal Medicine; Referring Provider Internal Medicine; Visit Provider Internal Medicine
DX: E78.5 Hyperlipidemia, unspecified (principal); E11.69 Type 2 diabetes mellitus with other specified complication; E03.9 Hypothyroidism, unspecified
CPT/HCPCS: 36415; 80061; 81001; 84443

== ENCOUNTER → 2023-08-03 | Outpatient (CLI) | payer MEDICARE, OTHER, SELFPAY | END | disposition home or self-care (01) | LOC: BIMLAB 13:58 | PROVIDERS: PCP Internal Medicine; Referring Provider Internal Medicine; Visit Provider Internal Medicine | DX: N39.0 Urinary tract infection, site not specified (principal) | CPT/HCPCS: 87086; 87088; 87186 ==

== ENCOUNTER → 2023-10-22 | Outpatient (CLI) | payer MEDICARE, OTHER, SELFPAY ==
[2023-10-22 09:20] LABS: Mucous, Urine 0 SEEN /hpf (<or=2+); Red Blood Cells-Urine 0 SEEN /hpf (0-5)
[2023-10-22 12:09] LABS: Color, Urine Yellow (Yellow); Glucose, Dipstick Normal (Normal); Ketone-Dipstick Negative (Negative); Leukocyte Esterase-Dipstick 500 /ul (Negative); Nitrite-Dipstick Negative (Negative); Occult Blood-Urine 10 /ul (Negative); Protein-Dipstick 30 mg/dl (Negative); Urine Bilirubin Dipstick Negative (Negative); Urine Clarity Sl. Cloudy (Clear); Urine Urobilinogen Normal (Normal)
[2023-10-22 12:11] LABS: Anion Gap 6 (5-15); BUN 23 mg/dL (7-18); BUN/Creat Ratio 24.2 RATIO (10-20); Calcium,Total 9.7 mg/dL (8.5-10.1); Chloride 104 mmol/L (98-107); Creatinine, Serum 0.95 mg/dL (0.55-1.02); EST Glomerular Filtration Rate 61 mL/min (>60); Est Glom Filt Rate - Afr Amer 74 mL/min (>60); Glucose 135 mg/dL (74-106); Potassium 4.6 mmol/L (3.5-5.1); Sodium Level 141 mmol/L (136-145)
[2023-10-22 12:18] LABS: Amorphous Sediment 1+; Bacteria 1+ /hpf (None Seen); Squamous Epithelial Cells - UA 10-25 SEEN /hpf (5-10)
[2023-10-22 12:19] LABS: White Blood Cells 10-25 SEEN /hpf (0-5)
[2023-10-22 12:46] LABS: Microalbumin,Random Urine 29.9 mg/L (NO RANGE EST.); Microalbumin:Creatinine Ratio 32.2 mg/g CRE (<30 mg/g CRE)
== END | disposition home or self-care (01) ==
LOC: BIMLAB 09:19
PROVIDERS: PCP Internal Medicine; Referring Provider Internal Medicine; Visit Provider Internal Medicine
DX: E11.69 Type 2 diabetes mellitus with other specified complication (principal); N39.0 Urinary tract infection, site not specified
CPT/HCPCS: 36415; 80048; 81001; 82043; 82570; 87086; 87088

== ENCOUNTER → 2024-01-18 | Outpatient (CLI) | payer MEDICARE, OTHER, SELFPAY ==
[2024-01-18 12:37] LABS: Anion Gap 7 (5-15); BUN 21 mg/dL (7-18); Calcium,Total 9.5 mg/dL (8.5-10.1); Chloride 105 mmol/L (98-107); Creatinine, Serum 1.05 mg/dL (0.55-1.02); EST Glomerular Filtration Rate 55 mL/min (>60); Est Glom Filt Rate - Afr Amer 66 mL/min (>60); Glucose 152 mg/dL (74-106); Potassium 4.3 mmol/L (3.5-5.1); Sodium Level 140 mmol/L (136-145)
== END | disposition home or self-care (01) ==
LOC: BIMLAB 09:14
PROVIDERS: PCP Internal Medicine; Referring Provider Internal Medicine; Visit Provider Internal Medicine
DX: E11.69 Type 2 diabetes mellitus with other specified complication (principal); E03.9 Hypothyroidism, unspecified
CPT/HCPCS: 36415; 80048; 84443

== ENCOUNTER → 2024-04-22 | Outpatient (CLI) | payer MEDICARE, OTHER, SELFPAY ==
[2024-04-22 12:51] LABS: Absolute Neutrophil Count 4.9 X10^3/uL (2.0-7.7); Basophil# 0.04 X10^3/uL; Basophil% 0.5 % (0-1); Eosinophil# 0.22 X10^3/uL; Hematocrit 39.5 % (37-47); Hemoglobin 12.5 g/dL (12.0-15.0); Lymphocyte % 20.5 % (19-41); Mean Corp Hgb Conc 31.6 g/dL (32-36); Mean Corpuscular Hgb 29.1 pg (27.0-32.0); Mean Corpuscular Volume 92.1 fL (81-99); Mean Platelet Vol. 9.8 fl (6.2-12.0); Monocyte# 0.58 X10^3/uL; Monocyte% 7.9 % (0-10); NRBC Flagged by Analyzer 0 % (0-5); Neutrophil # 4.94 X10^3/uL (2.7-7.7); Neutrophil % 67.7 % (47-70); Platelet Count 394 K/mm3 (150-450); RBC Distribution Width CV 13.5 % (11.6-14.6); RBC Distribution Width SD 45.6 fl (35.1-43.9); Red Blood Count 4.29 M/mm3 (4.2-5.4); White Blood Count 7.3 K/mm3 (4.4-11.0)
[2024-04-22 13:21] LABS: Cholesterol 195 mg/dL (<=200); High Density Lipoprotein 37 mg/dL; Low Density Lipoprotein Calc. 121 mg/dL; Triglycerides 182 mg/dL; Very Low Density Lipoprotein 36 mg/dL (5-40); cholesterol:hdl ratio screen 5.24
[2024-04-22 13:24] LABS: ALB/GLOB Ratio 1.3 RATIO (0.9-2.4); AST(SGOT) 16 U/L (<=31); Alanine Aminotransfer ALT/SGPT 14 U/L (<=34); Alkaline Phosphatase 58 U/L (35-104); Anion Gap 12 (5-15); BUN 19 mg/dL (4-19); Calcium,Total 9.6 mg/dL (7.6-11.0); Chloride 101 mmol/L (98-108); Creatinine, Serum 0.96 mg/dL (0.70-1.20); EST Glomerular Filtration Rate 63 (>60); Globulin 3.1 g/dL (2.2-4.2); Glucose 144 mg/dL (70-99); Potassium 4.2 mmol/L (3.3-5.1); Protein, Total 7.1 g/dL (5.9-8.4); Sodium Level 137 mmol/L (133-145); Total Bilirubin 0.46 mg/dL (0.00-1.30)
[2024-04-22 13:27] LABS: Microalbumin:Creatinine Ratio 128.4 mg/g CRE
[2024-04-22 14:01] LABS: Hemoglobin A1c 7.4 % (<=5.6)
== END | disposition home or self-care (01) ==
LOC: BIMLAB 08:33
PROVIDERS: PCP Internal Medicine; Referring Provider Internal Medicine; Visit Provider Internal Medicine
DX: E11.69 Type 2 diabetes mellitus with other specified complication (principal)
CPT/HCPCS: 36415; 80053; 80061; 82043; 82570; 83036; 85025

== ENCOUNTER → 2024-11-13 | Outpatient (CLI) | payer MEDICARE, OTHER, SELFPAY ==
[2024-11-13 15:28] LABS: Anion Gap 13 (5-15); BUN 21 mg/dL (4-19); BUN/Creat Ratio 20.6 RATIO (10-20); Calcium,Total 9.7 mg/dL (7.6-11.0); Carbon Dioxide 24.2 mmol/L (21.0-32.0); Chloride 102 mmol/L (98-108); Glucose 114 mg/dL (70-99); Potassium 4.2 mmol/L (3.3-5.1); Vitamin D,25 Hydroxy 50.3 ng/mL (30-100)
== END | disposition home or self-care (01) ==
LOC: MTLAB 11:45
PROVIDERS: PCP Internal Medicine; Referring Provider Internal Medicine; Visit Provider Internal Medicine
DX: E03.9 Hypothyroidism, unspecified (principal); M85.80 Other specified disorders of bone density and structure, unspecified site; I10 Essential (primary) hypertension
CPT/HCPCS: 36415; 80048; 82306; 84443